=== PATIENT | male | born 1945 | race Caucasian/White ===

== ENCOUNTER → 2023-07-02 10:07 | Outpatient (REF) | payer MEDICARE, OTHER, SELFPAY ==
[2023-07-02 10:42] LABS: % Basophils 0.6 % (0-2); % Eosinophils 3.2 % (0-6); % Immature Granulocytes 0.2 % (0-0.5); % Lymphocytes 55.7 % (20.5-51.1); % Monocytes 7.4 % (1.7-9.3); % Neutrophils 32.9 % (42.2-75.2); Absolute Eosinophils 0.2 10^3/uL (0-0.7); Absolute Monocytes 0.4 10^3/uL (0.1-0.6); Absolute Neutrophils 1.8 10^3/uL (1.4-6.5); Hematocrit 24.6 % (39.0-52.0); Hemoglobin 7.3 g/dL (13.0-18.0); INR 1.25; Mean Corp Hgb Conc. 29.7 g/dL (33.0-37.0); Mean Corpuscular Hgb 18.9 pg (27.0-31.0); Mean Corpuscular Volume 63.7 fL (80.0-94.0); Mean Platelet Volume 10.3 fL (7.4-10.4); Nucleated Red Blood Cells % 0 % (-); PT 15.5 Sec (11.4-14.6); Platelet Count 220 10^3/uL (130-400); Red Blood Cell Count 3.86 10^6/uL (4.70-6.10); Red Cell Dist. Width 17.7 % (11.5-14.5); White Blood Cell Count 5.3 10^3/uL (4.8-10.8)
[2023-07-02 10:43] LABS: APTT 38.5 Sec (23.4-35.0)
[2023-07-02 10:54] LABS: ALT (SGPT) < 10 U/L (0-50); AST (SGOT) 19 U/L (17-59); Albumin 2.7 g/dl (3.5-5.0); Alkaline Phosphatase 86 U/L (38-126); Blood Urea Nitrogen 22 mg/dl (9-20); Calcium 8.7 mg/dl (8.4-10.2); Carbon Dioxide 27 mmol/L (22-30); Chloride 101 mmol/L (98-107); Glucose 105 mg/dl (70-99); Potassium 4.3 mmol/L (3.5-5.1); Sodium 135 mmol/L (135-145); Total Bilirubin 0.8 mg/dl (0.2-1.3); Total Protein 6.5 g/dl (6.3-8.2); eGFR > 60.00
[2023-07-02 11:27] LABS: AFP Male/Tumor Marker 2.02 ng/ml
== END ==
LOC: OLABLV 10:07
PROVIDERS: ATTENDING PHYSICIAN Internal Medicine
DX: K70.30 Alcoholic cirrhosis of liver without ascites (principal); D50.9 Iron deficiency anemia, unspecified
CPT/HCPCS: 36415; 80053; 82105; 85025; 85610; 85730

== ENCOUNTER 2023-07-23 06:14 | Day surgery (SDC) | payer MEDICARE, OTHER, SELFPAY ==
[2023-07-23 10:42] VITALS: BP 106/67
[2023-07-23 10:51] VITALS: BMI 19.2
[2023-07-23 10:52] VITALS: BMI 19.2
[2023-07-23 12:20] VITALS: BP 89/65
[2023-07-23 12:30] VITALS: BP 101/67
[2023-07-23 12:45] VITALS: BP 109/75
[2023-07-23 12:53] VITALS: BP 114/80
[2023-07-23 13:17] LABS: % Basophils 0.6 % (0-2); % Eosinophils 2.6 % (0-6); % Immature Granulocytes 0.2 % (0-0.5); % Lymphocytes 57.9 % (20.5-51.1); % Monocytes 8.8 % (1.7-9.3); % Neutrophils 29.9 % (42.2-75.2); Absolute Eosinophils 0.1 10^3/uL (0-0.7); Absolute Lymphocytes 2.7 10^3/uL (1.2-3.4); Absolute Monocytes 0.4 10^3/uL (0.1-0.6); Absolute Neutrophils 1.4 10^3/uL (1.4-6.5); Hematocrit 25.9 % (39.0-52.0); Hemoglobin 7.7 g/dL (13.0-18.0); Mean Corp Hgb Conc. 29.7 g/dL (33.0-37.0); Mean Corpuscular Hgb 18.6 pg (27.0-31.0); Mean Corpuscular Volume 62.4 fL (80.0-94.0); Mean Platelet Volume 9.6 fL (7.4-10.4); Nucleated Red Blood Cells % 0 % (-); Platelet Count 210 10^3/uL (130-400); Red Blood Cell Count 4.15 10^6/uL (4.70-6.10); Red Cell Dist. Width 19.7 % (11.5-14.5); Reticulocyte Count 1.1 % (0.4-2.8); White Blood Cell Count 4.7 10^3/uL (4.8-10.8)
[2023-07-23 13:47] LABS: HDL Cholesterol 29 mg/dl; Iron 40 ug/dl (49-181); LDL Cholesterol, Calculated 69 mg/dl; Total Cholesterol 110 mg/dl (50-199); Triglyceride 62 mg/dl (10-149); Very Low Density Lipoprotein 12 mg/dl (0-30)
[2023-07-23 13:50] LABS: Erythrocyte Sed Rate 68 mm/hour (0-20)
[2023-07-23 13:58] LABS: Percent Saturation 10 % (20-50); Total Iron Binding Capacity 392 ug/dl (261-462)
[2023-07-23 14:06] LABS: Free T4 1.04 ng/dl (0.78-2.19); Vitamin D, 25-OH*** 29.5 ng/mL (30-80)
[2023-07-23 14:20] LABS: PSA, Total - Screen 0.96 ng/ml (0.0-4.0)
[2023-07-23 14:23] LABS: TSH 1.77 uIU/ml (0.47-4.68)
[2023-07-23 14:24] LABS: Ferritin 14.2 ng/ml (17.9-464.0)
[2023-07-23 14:55] LABS: Folate 8.6 ng/ml (2.76-20); Vitamin B12 430 pg/ml (239-931)
[2023-07-27 00:27] LABS: Albumin 2.74 g/dL (3.75-5.01); Alpha 1 Globulin 0.38 g/dL (0.19-0.46); Alpha 2 Globulin 0.62 g/dL (0.48-1.05); Free Kappa Light Chains,Quant 137.14 mg/L (3.30-19.40); Free Lambda Light Chains,Quant 70.46 mg/L (5.71-26.30); IgA 282 mg/dL (68-408); IgG 2525 mg/dL (768-1632); IgM 73 mg/dL (35-263); Immunofixation Electrophoresis IFE Done; Kappa/Lambda Fr Light Ratio 1.95 (0.26-1.65)
== END 2023-07-23 13:30 | disposition home or self-care (01) ==
LOC: GI 06:14
PROVIDERS: ATTENDING PHYSICIAN Internal Medicine
DX: D50.9 Iron deficiency anemia, unspecified (principal); K44.9 Diaphragmatic hernia without obstruction or gangrene; K31.7 Polyp of stomach and duodenum; K22.70 Barrett's esophagus without dysplasia; K25.9 Gastric ulcer, unspecified as acute or chronic, without hemorrhage or perforation
CPT/HCPCS: 43235; 91112; 36415; 80061; 82306; 82607; 82728; 82746; 82784; 83521; 83540; 83550; 84155; 84165; 84439; 84443; 85025; 85045; 85652; 86334; G0103

== ENCOUNTER → 2023-07-26 14:15 | Outpatient (REF) | payer MEDICARE, OTHER, SELFPAY ==
[2023-07-26 11:58] LABS: % Basophils 0.8 % (0-2); % Eosinophils 2.5 % (0-6); % Immature Granulocytes 0.3 % (0-0.5); % Lymphocytes 59.6 % (20.5-51.1); % Monocytes 7.9 % (1.7-9.3); % Neutrophils 28.9 % (42.2-75.2); Absolute Eosinophils 0.1 10^3/uL (0-0.7); Absolute Lymphocytes 2.4 10^3/uL (1.2-3.4); Absolute Monocytes 0.3 10^3/uL (0.1-0.6); Absolute Neutrophils 1.1 10^3/uL (1.4-6.5); Hematocrit 29.1 % (39.0-52.0); Hemoglobin 8.6 g/dL (13.0-18.0); Mean Corp Hgb Conc. 29.6 g/dL (33.0-37.0); Mean Corpuscular Hgb 18.7 pg (27.0-31.0); Mean Corpuscular Volume 63.4 fL (80.0-94.0); Mean Platelet Volume 9.3 fL (7.4-10.4); Nucleated Red Blood Cells % 0 % (-); Platelet Count 204 10^3/uL (130-400); Red Blood Cell Count 4.59 10^6/uL (4.70-6.10); Red Cell Dist. Width 21.5 % (11.5-14.5); Reticulocyte Count 0.9 % (0.4-2.8); White Blood Cell Count 3.9 10^3/uL (4.8-10.8)
[2023-07-26 12:17] LABS: Iron 32 ug/dl (49-181)
[2023-07-26 12:18] LABS: Erythrocyte Sed Rate 63 mm/hour (0-20)
[2023-07-26 12:27] LABS: Percent Saturation 8 % (20-50); Total Iron Binding Capacity 394 ug/dl (261-462)
[2023-07-26 12:29] LABS: IgA 322 mg/dl (70-400); IgM 68 mg/dl (40-230)
[2023-07-26 12:34] LABS: Vitamin D, 25-OH*** 41.1 ng/mL (30-80)
[2023-07-26 12:48] LABS: TSH 1.82 uIU/ml (0.47-4.68)
[2023-07-26 12:52] LABS: Ferritin 17.1 ng/ml (17.9-464.0); IgG 2830 mg/dl (700-1600)
[2023-07-26 14:50] LABS: Vitamin B12 500 pg/ml (239-931)
== END ==
LOC: OIDL 14:15
PROVIDERS: ATTENDING PHYSICIAN Internal Medicine Hematology & Oncology
DX: D47.2 Monoclonal gammopathy (principal); D50.9 Iron deficiency anemia, unspecified; D51.9 Vitamin B12 deficiency anemia, unspecified; R53.82 Chronic fatigue, unspecified; E55.9 Vitamin D deficiency, unspecified
CPT/HCPCS: 82306; 82607; 82728; 82746; 82784; 83540; 83550; 84443; 85025; 85045; 85652

== ENCOUNTER → 2023-09-08 09:56 | Outpatient (REF) | payer MEDICARE, OTHER, SELFPAY ==
[2023-09-08 11:01] LABS: Hematocrit 33.6 % (39.0-52.0); Hemoglobin 10.4 g/dL (13.0-18.0); Mean Corpuscular Hgb 22.7 pg (27.0-31.0); Mean Corpuscular Volume 73.4 fL (80.0-94.0); Mean Platelet Volume 9.5 fL (7.4-10.4); Platelet Count 186 10^3/uL (130-400); Red Blood Cell Count 4.58 10^6/uL (4.70-6.10); Red Cell Dist. Width 26.4 % (11.5-14.5); White Blood Cell Count 5.9 10^3/uL (4.8-10.8)
[2023-09-08 11:29] LABS: Iron 50 ug/dl (49-181)
[2023-09-08 11:38] LABS: Percent Saturation 15 % (20-50); Total Iron Binding Capacity 319 ug/dl (261-462)
[2023-09-08 12:27] LABS: Ferritin 50.1 ng/ml (17.9-464.0)
[2023-09-08 13:46] LABS: Atypical Lymphocytes 14 %; Band Neutrophils 2 % (0-3); Lymphocytes 44 % (20-51); Monocytes 8 % (2-9); Platelets Checked Yes; Segmented Neutrophils 32 % (42-75)
[2023-09-08 13:47] LABS: Anisocytosis 1+; Normal RBC Morphology No; Target Cells Slight
[2023-09-08 13:48] LABS: Ovalocytes Slight; Poikilocytosis 1+
[2023-09-08 13:49] LABS: Total Cells Counted 100
== END ==
LOC: OLABLV 09:56
PROVIDERS: ATTENDING PHYSICIAN Internal Medicine Hematology & Oncology
DX: D47.2 Monoclonal gammopathy (principal); D50.9 Iron deficiency anemia, unspecified
CPT/HCPCS: 36415; 82728; 83540; 83550; 85025

== ENCOUNTER → 2023-09-19 20:00 | Outpatient (REF) | payer MEDICARE, OTHER, SELFPAY ==
[2023-09-20 14:29] LABS: Urine Albumin Negative (Neg - Trace); Urine Bilirubin Negative (Negative); Urine Character Clear (Clear); Urine Color Yellow; Urine Glucose Negative (Negative); Urine Ketone Negative (Negative); Urine Leukocyte Negative (Negative); Urine Nitrite Negative (Negative); Urine Occult Blood Negative (Negative); Urine Urobilinogen Negative (Neg - 1+)
== END ==
LOC: OLABLV 20:00
PROVIDERS: ATTENDING PHYSICIAN Nurse Practitioner Family
DX: N39.0 Urinary tract infection, site not specified (principal)
CPT/HCPCS: 81003

== ENCOUNTER → 2023-09-20 13:43 | Outpatient (REF) | payer MEDICARE, OTHER, SELFPAY | LOC: PAVMRI 13:43 | PROVIDERS: ATTENDING PHYSICIAN Internal Medicine; FAMILY PHYSICIAN Family Medicine | DX: K70.30 Alcoholic cirrhosis of liver without ascites (principal) | CPT/HCPCS: 74183; A9575 ==

== ENCOUNTER → 2023-09-30 14:16 | Outpatient (REF) | payer MEDICARE, OTHER, SELFPAY ==
[2023-09-30 11:59] LABS: Hematocrit 35.2 % (39.0-52.0); Mean Corp Hgb Conc. 31.3 g/dL (33.0-37.0); Mean Corpuscular Hgb 23.8 pg (27.0-31.0); Mean Platelet Volume 9.1 fL (7.4-10.4); Platelet Count 144 10^3/uL (130-400); Red Blood Cell Count 4.63 10^6/uL (4.70-6.10); Red Cell Dist. Width 20.8 % (11.5-14.5); White Blood Cell Count 4.7 10^3/uL (4.8-10.8)
[2023-09-30 12:24] LABS: Blood Urea Nitrogen 22 mg/dl (9-20); Calcium 8.9 mg/dl (8.4-10.2); Carbon Dioxide 34 mmol/L (22-30); Chloride 101 mmol/L (98-107); Glucose 63 mg/dl (70-99); Potassium 4.3 mmol/L (3.5-5.1); Sodium 138 mmol/L (135-145); eGFR > 60.00
[2023-09-30 13:15] LABS: Nucleated Red Blood Cells % 0 % (-)
[2023-09-30 15:25] LABS: % Basophils 0.6 % (0-2); % Eosinophils 1.9 % (0-6); % Immature Granulocytes 0.2 % (0-0.5); % Lymphocytes 61.2 % (20.5-51.1); % Monocytes 7.8 % (1.7-9.3); % Neutrophils 28.3 % (42.2-75.2); Absolute Neutrophils 1.3 10^3/uL (1.4-6.5)
[2023-09-30 15:26] LABS: Absolute Eosinophils 0.1 10^3/uL (0-0.7); Absolute Lymphocytes 2.9 10^3/uL (1.2-3.4); Absolute Monocytes 0.4 10^3/uL (0.1-0.6)
[2023-09-30 16:12] LABS: Absolute Neutrophils -Man Diff 1.5 10^3/uL (1.4-6.5); Band Neutrophils 0 % (0-3); Eosinophils 1 % (0-6); Lymphocytes 64 % (20-51); Monocytes 3 % (2-9); Normal RBC Morphology Yes; Pathologist Reviewed No; Platelets Checked Yes; Segmented Neutrophils 32 % (42-75); Total Cells Counted 100
== END ==
LOC: OIDL 14:16
PROVIDERS: ATTENDING PHYSICIAN Internal Medicine Hematology & Oncology
DX: D47.2 Monoclonal gammopathy (principal)
CPT/HCPCS: 80048; 82784; 83521; 84155; 84165; 85025; 86334

== ENCOUNTER → 2023-11-03 11:59 | Outpatient (REF) | payer MEDICARE, OTHER, SELFPAY ==
[2023-11-03 13:09] LABS: % Basophils 0.8 % (0-2); % Eosinophils 2.7 % (0-6); % Lymphocytes 55.3 % (20.5-51.1); % Monocytes 6.1 % (1.7-9.3); % Neutrophils 35.1 % (42.2-75.2); Absolute Eosinophils 0.1 10^3/uL (0-0.7); Absolute Lymphocytes 2.8 10^3/uL (1.2-3.4); Absolute Monocytes 0.3 10^3/uL (0.1-0.6); Absolute Neutrophils 1.8 10^3/uL (1.4-6.5); Hematocrit 34.1 % (39.0-52.0); Mean Corp Hgb Conc. 32.3 g/dL (33.0-37.0); Mean Corpuscular Hgb 25.6 pg (27.0-31.0); Mean Corpuscular Volume 79.5 fL (80.0-94.0); Mean Platelet Volume 9.6 fL (7.4-10.4); Nucleated Red Blood Cells % 0 % (-); Platelet Count 150 10^3/uL (130-400); Red Blood Cell Count 4.29 10^6/uL (4.70-6.10); Red Cell Dist. Width 16.8 % (11.5-14.5); White Blood Cell Count 5.1 10^3/uL (4.8-10.8)
== END ==
LOC: OLABLV 11:59
PROVIDERS: ATTENDING PHYSICIAN Internal Medicine Hematology & Oncology; FAMILY PHYSICIAN Nurse Practitioner Family
DX: D47.2 Monoclonal gammopathy (principal); C83.07 Small cell B-cell lymphoma, spleen; D05.90 Unspecified type of carcinoma in situ of unspecified breast
CPT/HCPCS: 36415; 85025

== ENCOUNTER → 2023-11-19 08:35 | Outpatient (REF) | payer MEDICARE, OTHER, SELFPAY ==
[2023-11-19 09:26] LABS: % Basophils 0.6 % (0-2); % Eosinophils 2.3 % (0-6); % Immature Granulocytes 0.2 % (0-0.5); % Lymphocytes 56.7 % (20.5-51.1); % Monocytes 7.6 % (1.7-9.3); % Neutrophils 32.6 % (42.2-75.2); Absolute Eosinophils 0.1 10^3/uL (0-0.7); Absolute Monocytes 0.4 10^3/uL (0.1-0.6); Absolute Neutrophils 1.7 10^3/uL (1.4-6.5); Hematocrit 36.7 % (39.0-52.0); Hemoglobin 11.4 g/dL (13.0-18.0); Mean Corp Hgb Conc. 31.1 g/dL (33.0-37.0); Mean Corpuscular Hgb 25.6 pg (27.0-31.0); Mean Corpuscular Volume 82.3 fL (80.0-94.0); Mean Platelet Volume 9.5 fL (7.4-10.4); Nucleated Red Blood Cells % 0 % (-); Platelet Count 146 10^3/uL (130-400); Red Blood Cell Count 4.46 10^6/uL (4.70-6.10); Red Cell Dist. Width 15.9 % (11.5-14.5); White Blood Cell Count 5.2 10^3/uL (4.8-10.8)
[2023-11-19 10:15] LABS: Iron 34 ug/dl (49-181)
[2023-11-19 10:25] LABS: Percent Saturation 12 % (20-50); Total Iron Binding Capacity 269 ug/dl (261-462)
== END ==
LOC: OLABLV 08:35
PROVIDERS: ATTENDING PHYSICIAN Internal Medicine Hematology & Oncology; FAMILY PHYSICIAN Nurse Practitioner Family
DX: R60.0 Localized edema (principal); K70.31 Alcoholic cirrhosis of liver with ascites; D47.2 Monoclonal gammopathy; D50.9 Iron deficiency anemia, unspecified
CPT/HCPCS: 36415; 82728; 83540; 83550; 85025

== ENCOUNTER → 2023-11-24 11:00 | Outpatient (REF) | payer MEDICARE, OTHER, SELFPAY ==
[2023-11-24 12:45] LABS: % Basophils 0.8 % (0-2); % Eosinophils 2.4 % (0-6); % Lymphocytes 55.7 % (20.5-51.1); % Monocytes 7.1 % (1.7-9.3); Absolute Eosinophils 0.1 10^3/uL (0-0.7); Absolute Lymphocytes 2.7 10^3/uL (1.2-3.4); Absolute Monocytes 0.4 10^3/uL (0.1-0.6); Absolute Neutrophils 1.7 10^3/uL (1.4-6.5); Hematocrit 37.4 % (39.0-52.0); Hemoglobin 11.7 g/dL (13.0-18.0); Mean Corp Hgb Conc. 31.3 g/dL (33.0-37.0); Mean Corpuscular Hgb 26.1 pg (27.0-31.0); Mean Corpuscular Volume 83.5 fL (80.0-94.0); Mean Platelet Volume 9.7 fL (7.4-10.4); Nucleated Red Blood Cells % 0 % (-); Platelet Count 156 10^3/uL (130-400); Red Blood Cell Count 4.48 10^6/uL (4.70-6.10); White Blood Cell Count 4.9 10^3/uL (4.8-10.8)
[2023-11-24 13:11] LABS: Iron 34 ug/dl (49-181)
== END ==
LOC: OLABLV 11:00
PROVIDERS: ATTENDING PHYSICIAN Internal Medicine Hematology & Oncology
DX: D47.2 Monoclonal gammopathy (principal); D50.9 Iron deficiency anemia, unspecified
CPT/HCPCS: 36415; 82728; 83540; 85025

== ENCOUNTER → 2023-12-08 12:50 | Outpatient (REF) | payer MEDICARE, OTHER, SELFPAY ==
[2023-12-08 13:32] LABS: % Basophils 0.6 % (0-2); % Lymphocytes 56.7 % (20.5-51.1); % Monocytes 6.2 % (1.7-9.3); % Neutrophils 33.5 % (42.2-75.2); Absolute Eosinophils 0.1 10^3/uL (0-0.7); Absolute Lymphocytes 2.6 10^3/uL (1.2-3.4); Absolute Monocytes 0.3 10^3/uL (0.1-0.6); Absolute Neutrophils 1.6 10^3/uL (1.4-6.5); Hemoglobin 11.5 g/dL (13.0-18.0); Mean Corp Hgb Conc. 32.9 g/dL (33.0-37.0); Mean Corpuscular Hgb 26.4 pg (27.0-31.0); Mean Corpuscular Volume 80.3 fL (80.0-94.0); Mean Platelet Volume 9.9 fL (7.4-10.4); Nucleated Red Blood Cells % 0 % (-); Platelet Count 151 10^3/uL (130-400); Red Blood Cell Count 4.36 10^6/uL (4.70-6.10); Red Cell Dist. Width 15.8 % (11.5-14.5); White Blood Cell Count 4.7 10^3/uL (4.8-10.8)
[2023-12-08 13:54] LABS: ALT (SGPT) < 10 U/L (0-50); AST (SGOT) 20 U/L (17-59); Albumin 3.2 g/dl (3.5-5.0); Alkaline Phosphatase 79 U/L (38-126); Blood Urea Nitrogen 19 mg/dl (9-20); Calcium 8.7 mg/dl (8.4-10.2); Carbon Dioxide 30 mmol/L (22-30); Chloride 100 mmol/L (98-107); Glucose 93 mg/dl (70-99); Iron 51 ug/dl (49-181); Potassium 4.2 mmol/L (3.5-5.1); Sodium 135 mmol/L (135-145); Total Bilirubin 0.8 mg/dl (0.2-1.3); Total Protein 6.5 g/dl (6.3-8.2); eGFR > 60.00
[2023-12-08 14:03] LABS: Percent Saturation 20 % (20-50); Total Iron Binding Capacity 254 ug/dl (261-462)
[2023-12-08 14:57] LABS: Folate 4.2 ng/ml (2.76-20); Vitamin B12 334 pg/ml (239-931)
== END ==
LOC: OLABLV 12:50
PROVIDERS: ATTENDING PHYSICIAN Internal Medicine Hematology & Oncology; FAMILY PHYSICIAN Nurse Practitioner Family
DX: D47.2 Monoclonal gammopathy (principal); D50.9 Iron deficiency anemia, unspecified; C83.07 Small cell B-cell lymphoma, spleen; R41.82 Altered mental status, unspecified
CPT/HCPCS: 80053; 82607; 82728; 82746; 83540; 83550; 85025

== ENCOUNTER → 2023-12-22 09:39 | Outpatient (REF) | payer MEDICARE, OTHER, SELFPAY ==
[2023-12-22 09:54] VITALS: BP 105/67; BP_SYST 89
[2023-12-22 10:10] VITALS: BP 104/68; BP_SYST 77
[2023-12-22] MEDS: TYLENOL 650 MG PO (10:45)
== END ==
LOC: RADI 09:39
PROVIDERS: ATTENDING PHYSICIAN Internal Medicine Critical Care Medicine
DX: J90 Pleural effusion, not elsewhere classified (principal)
CPT/HCPCS: 88305; 32555; 71045; 88112

== ENCOUNTER → 2023-12-31 14:28 | Outpatient (REF) | payer MEDICARE, OTHER, SELFPAY ==
[2023-12-31 15:39] LABS: INR 1.21; PT 15.1 Sec (11.4-14.6)
[2023-12-31 16:11] LABS: ALT (SGPT) < 10 U/L (0-50); AST (SGOT) 20 U/L (17-59); Albumin 3.5 g/dl (3.5-5.0); Alkaline Phosphatase 92 U/L (38-126); Blood Urea Nitrogen 18 mg/dl (9-20); Carbon Dioxide 31 mmol/L (22-30); Chloride 98 mmol/L (98-107); Glucose 100 mg/dl (70-99); Iron 65 ug/dl (49-181); Potassium 3.8 mmol/L (3.5-5.1); Sodium 137 mmol/L (135-145); Total Bilirubin 0.8 mg/dl (0.2-1.3); Total Protein 7.2 g/dl (6.3-8.2); eGFR > 60.00
[2023-12-31 16:20] LABS: Percent Saturation 23 % (20-50); Total Iron Binding Capacity 274 ug/dl (261-462)
[2023-12-31 16:46] LABS: Hematocrit 37.6 % (39.0-52.0); Hemoglobin 12.2 g/dL (13.0-18.0); Mean Corp Hgb Conc. 32.4 g/dL (33.0-37.0); Mean Corpuscular Hgb 26.7 pg (27.0-31.0); Mean Corpuscular Volume 82.3 fL (80.0-94.0); Mean Platelet Volume 9.8 fL (7.4-10.4); Platelet Count 189 10^3/uL (130-400); Red Blood Cell Count 4.57 10^6/uL (4.70-6.10); Red Cell Dist. Width 14.8 % (11.5-14.5); White Blood Cell Count 5.4 10^3/uL (4.8-10.8)
[2023-12-31 17:03] LABS: % Basophils 0.9 % (0-2); % Eosinophils 2.4 % (0-6); % Immature Granulocytes 0.2 % (0-0.5); % Lymphocytes 58.9 % (20.5-51.1); % Monocytes 5.4 % (1.7-9.3); % Neutrophils 32.2 % (42.2-75.2); Absolute Basophils 0.1 10^3/uL (0-0.2); Absolute Eosinophils 0.1 10^3/uL (0-0.7); Absolute Lymphocytes 3.2 10^3/uL (1.2-3.4); Absolute Monocytes 0.3 10^3/uL (0.1-0.6); Absolute Neutrophils 1.8 10^3/uL (1.4-6.5); Nucleated Red Blood Cells % 0 % (-)
== END ==
LOC: OLABLV 14:28
PROVIDERS: Nurse Practitioner Family; ATTENDING PHYSICIAN Nurse Practitioner; REFERRING PHYSICIAN Internal Medicine Hematology & Oncology
DX: K70.30 Alcoholic cirrhosis of liver without ascites (principal); D50.9 Iron deficiency anemia, unspecified
CPT/HCPCS: 36415; 80053; 82105; 82728; 83540; 83550; 85025; 85610; 85730

== ENCOUNTER → 2024-01-05 11:24 | Outpatient (REF) | payer MEDICARE, OTHER, SELFPAY ==
[2024-01-05 13:44] LABS: Hematocrit 36.4 % (39.0-52.0); Hemoglobin 11.6 g/dL (13.0-18.0); Mean Corp Hgb Conc. 31.9 g/dL (33.0-37.0); Mean Corpuscular Volume 84.8 fL (80.0-94.0); Mean Platelet Volume 9.9 fL (7.4-10.4); Platelet Count 165 10^3/uL (130-400); Red Blood Cell Count 4.29 10^6/uL (4.70-6.10); Red Cell Dist. Width 14.5 % (11.5-14.5); White Blood Cell Count 5.5 10^3/uL (4.8-10.8)
[2024-01-05 14:56] LABS: Absolute Neutrophils -Man Diff 1.2 10^3/uL (1.4-6.5); Band Neutrophils 0 % (0-3); Eosinophils 2 % (0-6); Lymphocytes 72 % (20-51); Monocytes 3 % (2-9); Normal RBC Morphology Yes; Platelets Checked Yes; Segmented Neutrophils 23 % (42-75); Total Cells Counted 100
== END ==
LOC: OLABLV 11:24
PROVIDERS: ATTENDING PHYSICIAN Internal Medicine Hematology & Oncology; FAMILY PHYSICIAN Nurse Practitioner Family
DX: D47.2 Monoclonal gammopathy (principal); C83.07 Small cell B-cell lymphoma, spleen; D50.9 Iron deficiency anemia, unspecified
CPT/HCPCS: 36415; 85025

== ENCOUNTER → 2024-01-14 10:56 | Outpatient (REF) | payer MEDICARE, OTHER, SELFPAY ==
[2024-01-14 11:39] LABS: Iron 30 ug/dl (49-181)
[2024-01-14 11:49] LABS: Hematocrit 34.4 % (39.0-52.0); Hemoglobin 11.3 g/dL (13.0-18.0); Mean Corp Hgb Conc. 32.8 g/dL (33.0-37.0); Mean Corpuscular Hgb 26.6 pg (27.0-31.0); Mean Corpuscular Volume 80.9 fL (80.0-94.0); Mean Platelet Volume 9.9 fL (7.4-10.4); Percent Saturation 11 % (20-50); Platelet Count 167 10^3/uL (130-400); Red Blood Cell Count 4.25 10^6/uL (4.70-6.10); Red Cell Dist. Width 14.1 % (11.5-14.5); Total Iron Binding Capacity 258 ug/dl (261-462); White Blood Cell Count 4.6 10^3/uL (4.8-10.8)
[2024-01-14 12:48] LABS: % Basophils 0.6 % (0-2); % Immature Granulocytes 0.2 % (0-0.5); % Lymphocytes 57.3 % (20.5-51.1); % Monocytes 6.7 % (1.7-9.3); % Neutrophils 32.2 % (42.2-75.2); Absolute Eosinophils 0.1 10^3/uL (0-0.7); Absolute Lymphocytes 2.7 10^3/uL (1.2-3.4); Absolute Monocytes 0.3 10^3/uL (0.1-0.6); Absolute Neutrophils 1.5 10^3/uL (1.4-6.5); Nucleated Red Blood Cells % 0 % (-)
== END ==
LOC: OLABLV 10:56
PROVIDERS: ATTENDING PHYSICIAN Nurse Practitioner Family
DX: R60.0 Localized edema (principal); K70.31 Alcoholic cirrhosis of liver with ascites
CPT/HCPCS: 36415; 82728; 83540; 83550; 85025

== ENCOUNTER → 2024-02-02 16:21 | Outpatient (REF) | payer MEDICARE, OTHER, SELFPAY ==
[2024-02-02 10:30] LABS: Blood Urea Nitrogen 19 mg/dl (9-20); Calcium 9.4 mg/dl (8.4-10.2); Chloride 98 mmol/L (98-107); Glucose 183 mg/dl (70-99); Potassium 4.6 mmol/L (3.5-5.1); Sodium 140 mmol/L (135-145); eGFR > 60.00
[2024-02-02 10:35] LABS: Carbon Dioxide 29 mmol/L (22-30); LDH 105 U/L (120-246)
[2024-02-02 12:06] LABS: % Basophils 0.8 % (0-2); % Eosinophils 2.1 % (0-6); % Immature Granulocytes 0.2 % (0-0.5); % Lymphocytes 54.4 % (20.5-51.1); % Monocytes 5.7 % (1.7-9.3); % Neutrophils 36.8 % (42.2-75.2); Absolute Eosinophils 0.1 10^3/uL (0-0.7); Absolute Lymphocytes 2.9 10^3/uL (1.2-3.4); Absolute Monocytes 0.3 10^3/uL (0.1-0.6); Absolute Neutrophils 1.9 10^3/uL (1.4-6.5); Hematocrit 39.4 % (39.0-52.0); Hemoglobin 12.8 g/dL (13.0-18.0); Mean Corp Hgb Conc. 32.5 g/dL (33.0-37.0); Mean Corpuscular Hgb 26.5 pg (27.0-31.0); Mean Corpuscular Volume 81.6 fL (80.0-94.0); Mean Platelet Volume 9.7 fL (7.4-10.4); Nucleated Red Blood Cells % 0 % (-); Platelet Count 175 10^3/uL (130-400); Red Blood Cell Count 4.83 10^6/uL (4.70-6.10); Red Cell Dist. Width 13.7 % (11.5-14.5); White Blood Cell Count 5.3 10^3/uL (4.8-10.8)
[2024-02-03 22:18] LABS: Beta-2-Microglobulin 5.6 mg/L (<=3.0)
[2024-02-05 02:49] LABS: Albumin 3.48 g/dL (3.75-5.01); Alpha 1 Globulin 0.42 g/dL (0.19-0.46); Alpha 2 Globulin 0.74 g/dL (0.48-1.05); Free Kappa Light Chains,Quant 124.08 mg/L (3.30-19.40); Free Lambda Light Chains,Quant 47.77 mg/L (5.71-26.30); IgA 279 mg/dL (68-408); IgG 2324 mg/dL (768-1632); IgM 62 mg/dL (35-263); Immunofixation Electrophoresis IFE Done; Total Protein-Electrophoresis 7.7 g/dL (6.3-8.2)
== END ==
LOC: OIDL 16:21
PROVIDERS: ATTENDING PHYSICIAN Internal Medicine Hematology & Oncology
DX: D47.2 Monoclonal gammopathy (principal)
CPT/HCPCS: 80048; 82232; 82784; 83521; 83615; 84155; 84165; 85025; 86334

== ENCOUNTER → 2024-03-01 11:22 | Outpatient (REF) | payer MEDICARE, OTHER, SELFPAY ==
[2024-03-01 12:13] LABS: Hematocrit 35.4 % (39.0-52.0); Hemoglobin 11.4 g/dL (13.0-18.0); Mean Corp Hgb Conc. 32.2 g/dL (33.0-37.0); Mean Corpuscular Hgb 27.2 pg (27.0-31.0); Mean Corpuscular Volume 84.5 fL (80.0-94.0); Mean Platelet Volume 9.7 fL (7.4-10.4); Platelet Count 162 10^3/uL (130-400); Red Blood Cell Count 4.19 10^6/uL (4.70-6.10); Red Cell Dist. Width 14.1 % (11.5-14.5); White Blood Cell Count 4.8 10^3/uL (4.8-10.8)
[2024-03-01 12:34] LABS: % Basophils 1.2 % (0-2); % Eosinophils 2.5 % (0-6); % Immature Granulocytes 0.2 % (0-0.5); % Lymphocytes 56.7 % (20.5-51.1); % Monocytes 6.4 % (1.7-9.3); Absolute Basophils 0.1 10^3/uL (0-0.2); Absolute Eosinophils 0.1 10^3/uL (0-0.7); Absolute Lymphocytes 2.7 10^3/uL (1.2-3.4); Absolute Monocytes 0.3 10^3/uL (0.1-0.6); Absolute Neutrophils 1.6 10^3/uL (1.4-6.5); Nucleated Red Blood Cells % 0 % (-)
== END ==
LOC: OLABLV 11:22
PROVIDERS: ATTENDING PHYSICIAN Internal Medicine; OTHER PHYSICIAN Internal Medicine Hematology & Oncology
DX: D47.2 Monoclonal gammopathy (principal); C83.07 Small cell B-cell lymphoma, spleen; D50.9 Iron deficiency anemia, unspecified
CPT/HCPCS: 36415; 85025

== ENCOUNTER → 2024-03-10 09:08 | Outpatient (REF) | payer MEDICARE, OTHER, SELFPAY ==
[2024-03-10 09:39] VITALS: BP 113/60; BP_SYST 76
[2024-03-10 09:44] LABS: INR 1.23; PT 15.3 Sec (11.4-14.6)
[2024-03-10 10:00] LABS: Hematocrit 38.9 % (39.0-52.0); Hemoglobin 12.4 g/dL (13.0-18.0); Mean Corp Hgb Conc. 31.9 g/dL (33.0-37.0); Mean Corpuscular Hgb 27.2 pg (27.0-31.0); Mean Corpuscular Volume 85.3 fL (80.0-94.0); Mean Platelet Volume 9.3 fL (7.4-10.4); Platelet Count 166 10^3/uL (130-400); Red Blood Cell Count 4.56 10^6/uL (4.70-6.10); Red Cell Dist. Width 14.2 % (11.5-14.5); White Blood Cell Count 4.6 10^3/uL (4.8-10.8)
[2024-03-10] MEDS: NSS (PRESERVATIVE FREE) 0.25 ML IV (10:26)
[2024-03-10] MEDS: ATIVAN 0.5 MG IV (10:27)
[2024-03-10 10:31] VITALS: BP 106/65
[2024-03-10 10:36] LABS: % Basophils 0.7 % (0-2); % Eosinophils 2.6 % (0-6); % Immature Granulocytes 0.2 % (0-0.5); % Lymphocytes 56.4 % (20.5-51.1); % Monocytes 5.3 % (1.7-9.3); % Neutrophils 34.8 % (42.2-75.2); Absolute Eosinophils 0.1 10^3/uL (0-0.7); Absolute Lymphocytes 2.6 10^3/uL (1.2-3.4); Absolute Monocytes 0.2 10^3/uL (0.1-0.6); Absolute Neutrophils 1.6 10^3/uL (1.4-6.5); Nucleated Red Blood Cells % 0 % (-)
[2024-03-10 11:23] VITALS: BP 124/76; BP_SYST 76
[2024-03-10 11:28] VITALS: BP 117/68
[2024-03-10 11:30] VITALS: BP 91/74
[2024-03-10 11:35] VITALS: BP 119/73
== END ==
LOC: RADI 09:08
PROVIDERS: ATTENDING PHYSICIAN Internal Medicine Hematology & Oncology; FAMILY PHYSICIAN Nurse Practitioner Family
DX: C83.07 Small cell B-cell lymphoma, spleen (principal); D47.2 Monoclonal gammopathy; D50.9 Iron deficiency anemia, unspecified
CPT/HCPCS: 88305; 88311; 88312; 36415; 38222; 77012; 85025; 85610; 88313; 99152

== ENCOUNTER 2024-03-13 14:44 | Emergency (ER) | payer MEDICARE, OTHER, SELFPAY ==
[2024-03-13] VITALS (7 sets, daily range): BP systolic 107–139; BP diastolic 61–81; BMI 19.1
--- NOTE | 2024-03-13 20:27 | ED.GENMED ---
History of Present Illness
General
Chief Complaint: Breathing Problem
Time Seen by Provider: 03/13/24 20:27
History of Present Illness
History of Present Illness:
TIME OF INITIAL ENCOUNTER: 8:30 PM
HPI: Patient comes in by ambulance from [facility] for further evaluation as he had outpatient x-ray that was abnormal. He has been having intermittent episodes of shortness of breath with exertion. He currently does not have any shortness
of breath at rest. He has had outpatient paracenteses in the past. He was surprised that they sent him here for further evaluation.
EXAM:
GENERAL: Well appearing in no distress
HEENT: Moist oral mucosa
CARDIOVASCULAR: No murmurs, normal heart rate, regular rhythm, No chest wall tenderness
PULMONARY: No respiratory distress, decreased breath sounds at the left base
ABDOMEN: Soft with no peritoneal signs, no tenderness
NEUROLOGIC: Good strength all extremities, no coordination deficits
PSYCHIATRIC: Appropriate mental status, normal insight and judgement
EXTREMITIES: Nontender, no edema, moves all extremities equally
SKIN: No rash, no lesions
NUMBER AND COMPLEXITY OF PROBLEMS ADDRESSED AT THE ENCOUNTER
� Chronic conditions affecting care: A-fib, high blood pressure, CKD, anemia, history of alcohol abuse, anxiety/depression
� Acute Exacerbation and/or Progression of Chronic Illness: This is an acute problem
� Differential Diagnosis includes: Pleural effusion, mass, pneumonia, heart failure
AMOUNT AND/OR COMPLEXITY OF DATA TO BE REVIEWED AND ANALYZED
� I performed an independent evaluation of and my interpretation is:
EKG:
CT: CT personally viewed and agree with radiologist interpretation there is a left-sided pleural effusion
X-rays: The chest x-ray that was performed earlier today as an outpatient shows moderate left-sided pleural effusion with loculation as well as airspace disease in the left lower lobe.
Laboratory Studies: I reviewed blood work from earlier today, white count 5.3, hemoglobin 11.5 which is near baseline, BNP 256, creatinine normal
Other:
� Review of other/old records: I reviewed old records including chest x-ray that was performed earlier today as outpatient
� Clinical information was obtained by an independent historian: None needed, patient is very good historian
� Prescriptions/Medications Considered but not given:
� Further testing considered but not performed:
RISK OF COMPLICATIONS AND/OR MORBIDITY OR MORTALITY OF PATIENT MANAGEMENT
� Social determinants of health affecting care: Comes in from [facility] (there for rehab)
� Discussion with other providers: Discussed case with on-call interventional radiology, Dr. Richardson
� Escalation of care including admission/observation vs risk of discharge considered: Given abnormality seen on plain film imaging, will obtain CT with contrast of the chest. However, the patient is 99% on room air and has
virtually no shortness of breath at rest.
ANY OTHER UPDATES:
11:45 PM: I reviewed the CT report that shows no definite mass but questions pneumonia. I doubt that he has pneumonia as the patient's oxygen level is 99%, he is afebrile, no cough, and white count is normal. Dr. Richardson recommended that his
nurses at the facility speak to a primary care doctor to get an order for an outpatient thoracentesis and will go through insurance and they can schedule him soon as possible. No clear indication for admission to the hospital.
Past History
Past History
ED Past Medical History: GERD, HTN, Psychiatric (alcohol abuse, anxiety), Other (Concussion, neuropathy, TIA,) and Other (Fatty liver, alcoholic liver disease)
ED Past Surgical History: Orthopedic (Right hip replacement 03/08/19. Previous left hip replacement)
Patient has exhibited threatening behavior?: No
Social History
Tobacco: Non-smoker
Alcohol: Daily
Personal:
Living: with family
Employment: Retired
Family History
Family History: Other (His father had a stroke)
Phy Exam
Physical Exam
Physical Exam:
See HPI
Scores
Heart Failure Risk
Heart Failure Risk Score: Not Applicable
Course
Orders/Labs/Results
Orders:
Orders
03/13/24 14:50
Electrocardiogram (*1) Urgent
Reason for Study: Shortness of Breath
EKG- Treatment ONCE
03/13/24 19:50
Cardiac Monitoring- Treatment ONCE
03/13/24 20:29
CT Chest With Iv Contrast Urgent
Comment:
Reason For Exam: abnormal CXR; SOB
03/13/24 20:29
03/13/24 20:29
Vital Signs
Initial and Last Documented VS:
Initial Vital Signs
Temp Pulse Resp BP Pulse Ox
97.6 F 82 16 108/61 97
03/13/24 14:48 03/13/24 14:48 03/13/24 14:48 03/13/24 14:48 03/13/24 14:48
Last Documented Vital Signs
Temp Pulse Resp BP Pulse Ox
98.4 F 89 29 128/79 98
03/13/24 18:27 03/13/24 21:30 03/13/24 21:30 03/13/24 21:00 03/13/24 21:30
*Critical Care Note
Total Time (30-74mins, 75-104mins- exclusive of procedures): Not Applicable
ED Attending Note
-
Portions of this chart may have been created with voice recognition software.� Occasional wrong word or��sound alike� substitutions may have occurred due to the inherent limitations of voice recognition software.
Discharge Plan
Departure
Patient Disposition: Home (Routine Discharge)
Date of Disposition: 03/13/24
Time of Disposition: 23:41
Patient with high blood pressure during this ER visit?: Yes
Discharge Problem:
Pleural effusion
Instructions: Pleural effusion, BLOOD PRESSURE
Prescriptions:
No Action
furosemide 40 mg Tablet
40 mg PO DAILY
famotidine 40 mg Tablet
40 mg PO DAILY
ferrous sulfate 325 mg (65 mg iron) Tablet
325 mg PO DAILY
calcium carbonate [Tums 500] 500 mg calcium (1,250 mg) Tablet,Chewable
500 mg PO BID PRN (Reason: indigestion)
acetaminophen [Tylenol Extra Strength] 500 mg Capsule
1,000 mg PO Q8H PRN (Reason: pain)
duloxetine 30 mg Capsule,Delayed Release(Dr/Ec)
30 mg PO BID
lactulose 10 gram/15 mL Solution
15 ml PO DAILY
Incruse Ellipta 62.5 mcg/actuation Blister With Device
1 inh INHALATION DAILY
melatonin 3 mg Capsule
3 mg PO HS PRN (Reason: sleep)
potassium chloride
10 meq PO DAILY
gabapentin 100 mg Capsule
100 mg PO TID
fluticasone propionate [Flonase] 50 mcg/actuation [place],Suspension
2 spray INTRANASAL BID
Referrals:
UNKNOWN - PT DOES,NOT KNOW [Family Provider] -
Activity Restrictions/Additional Instructions:
The CAT scan with IV contrast did not show any masses. It did show a moderate left and small right pleural effusion that could represent a chronic loculated effusion versus empyema. The 'mass' that was questioned on x-ray was felt to be either
atelectasis or pneumonia on the CT however your white blood cell count was normal from earlier today and you do not have a fever therefore I do not feel you have pneumonia. BNP level (test for heart failure) was not consistent with heart failure.
I spoke to Dr. Richardson (interventional radiology' who said that they can arrange outpatient thoracentesis but they would need a referral from the primary care doctor due to insurance requirement and once they have it they can arrange to schedule
you as soon as possible. Please speak to your nurses about this at [facility]. Return here if worse or any other concerns. Your oxygen levels here have been 99% on room air.
Interventions
Interventions:
*Risk Screen - Suicide Last Done: 03/13/24 14:48
*General Assessment Last Done: 03/13/24 19:55
*Neglect/Abuse Screening Last Done: 03/13/24 14:48
ED- Fall Risk Assessment Last Done: 03/13/24 20:48
*ED COVID-19 Vaccine History Last Done: 03/13/24 19:55
ED- Cardiac Assessment Last Done: 03/13/24 20:48
ED- Pulmonary Assessment Last Done: 03/13/24 20:48
Discharge Date and Time
Print Language: MACEDONIAN
--- NOTE | 2024-03-13 22:08 | EDRN ---
Updated patient on delay for CT, plugged his phone in and turned down lights for him, call nicolas in reach.
--- NOTE | 2024-03-14 00:47 | EDRN ---
Patient was incontinent to urine, patient ambulated into the restroom with use of walker, went to the bathroom and the we changed his brief and linen, provided patient with a urinal and reminded him to call if he needs to use the restroom or
anything else, he is aware transport wont be here until 0500 to take him back to facility.
[2024-03-14 01:00] VITALS: BP 119/89
[2024-03-14 02:00] VITALS: BP 118/78
[2024-03-14 03:00] VITALS: BP 127/99
== END 2024-03-14 04:22 | disposition home or self-care (01) ==
LOC: EMR 14:44
PROVIDERS: EMERGENCY PHYSICIAN Emergency Medicine
DX: J90 Pleural effusion, not elsewhere classified (principal); I10 Essential (primary) hypertension; I48.91 Unspecified atrial fibrillation; N18.9 Chronic kidney disease, unspecified; D64.9 Anemia, unspecified; F41.9 Anxiety disorder, unspecified; F32.A Depression, unspecified; F10.10 Alcohol abuse, uncomplicated
CPT/HCPCS: 99285; 36415; 71046; 71260; 80048; 83880; 85025; 93005; Q9967

== ENCOUNTER → 2024-03-22 07:46 | Outpatient (REF) | payer MEDICARE, OTHER, SELFPAY ==
[2024-03-22 08:00] VITALS: BP 102/73; BP_SYST 77
[2024-03-22 08:21] VITALS: BP 104/71; BP_SYST 66
[2024-03-22 08:34] VITALS: BP 105/68
== END ==
LOC: RADI 07:46
PROVIDERS: ATTENDING PHYSICIAN Family Medicine
DX: J90 Pleural effusion, not elsewhere classified (principal)
CPT/HCPCS: 32555; 71045

== ENCOUNTER → 2024-04-05 15:37 | Outpatient (REF) | payer MEDICARE, OTHER, SELFPAY | LOC: RAD 15:37 | PROVIDERS: ATTENDING PHYSICIAN Physician Assistant; FAMILY PHYSICIAN Family Medicine | DX: K70.30 Alcoholic cirrhosis of liver without ascites (principal) | CPT/HCPCS: 32555; 76700 ==

== ENCOUNTER → 2024-04-28 10:33 | Outpatient (REF) | payer MEDICARE, OTHER, SELFPAY ==
[2024-04-28 12:38] LABS: Hematocrit 35.4 % (39.0-52.0); Mean Corp Hgb Conc. 31.1 g/dL (33.0-37.0); Mean Corpuscular Hgb 26.6 pg (27.0-31.0); Mean Corpuscular Volume 85.5 fL (80.0-94.0); Mean Platelet Volume 9.8 fL (7.4-10.4); Platelet Count 142 10^3/uL (130-400); Red Blood Cell Count 4.14 10^6/uL (4.70-6.10); Red Cell Dist. Width 14.2 % (11.5-14.5); White Blood Cell Count 4.5 10^3/uL (4.8-10.8)
[2024-04-28 12:46] LABS: ALT (SGPT) 10 U/L (0-50); AST (SGOT) 19 U/L (17-59); Albumin 3.1 g/dl (3.5-5.0); Alkaline Phosphatase 82 U/L (38-126); Blood Urea Nitrogen 17 mg/dl (9-20); Calcium 8.4 mg/dl (8.4-10.2); Carbon Dioxide 34 mmol/L (22-30); Chloride 98 mmol/L (98-107); Glucose 107 mg/dl (70-99); Potassium 3.8 mmol/L (3.5-5.1); Sodium 138 mmol/L (135-145); Total Bilirubin 0.6 mg/dl (0.2-1.3); Total Protein 6.5 g/dl (6.3-8.2); Uric Acid 6.7 mg/dl (3.5-8.5); eGFR > 60.00
[2024-04-28 13:13] LABS: Hepatitis B Surface Antigen Negative (Negative)
[2024-04-28 13:19] LABS: Hepatitis B Core Ab, IgM Negative (Negative)
[2024-04-28 13:31] LABS: Hepatitis B Surface Antibody Negative; Hepatitis C Antibody Negative (Negative)
[2024-04-28 14:12] LABS: Atypical Lymphocytes 8 %; Band Neutrophils 0 % (0-3); Eosinophils 6 % (0-6); Lymphocytes 43 % (20-51); Monocytes 17 % (2-9); Myelocytes 3 % (-); Segmented Neutrophils 23 % (42-75)
[2024-04-28 14:13] LABS: Normal RBC Morphology Yes; Platelets Checked Yes; Smudge Cells 1+; Total Cells Counted 100
== END ==
LOC: OLABLV 10:33
PROVIDERS: ATTENDING PHYSICIAN Internal Medicine Hematology & Oncology
DX: D47.2 Monoclonal gammopathy (principal); D50.9 Iron deficiency anemia, unspecified; C83.07 Small cell B-cell lymphoma, spleen
CPT/HCPCS: 36415; 80053; 84550; 85025; 86705; 86706; 86803; 87340

== ENCOUNTER → 2024-05-26 16:34 | Outpatient (REF) | payer MEDICARE, OTHER, SELFPAY ==
[2024-05-26 08:41] LABS: % Basophils 0.5 % (0-2); % Eosinophils 3.6 % (0-6); % Lymphocytes 52.2 % (20.5-51.1); % Monocytes 5.9 % (1.7-9.3); % Neutrophils 37.8 % (42.2-75.2); Absolute Eosinophils 0.2 10^3/uL (0-0.7); Absolute Lymphocytes 3.2 10^3/uL (1.2-3.4); Absolute Monocytes 0.4 10^3/uL (0.1-0.6); Absolute Neutrophils 2.3 10^3/uL (1.4-6.5); Hemoglobin 11.8 g/dL (13.0-18.0); Mean Corp Hgb Conc. 30.3 g/dL (33.0-37.0); Mean Corpuscular Hgb 25.9 pg (27.0-31.0); Mean Corpuscular Volume 85.5 fL (80.0-94.0); Mean Platelet Volume 9.5 fL (7.4-10.4); Platelet Count 149 10^3/uL (130-400); Red Blood Cell Count 4.56 10^6/uL (4.70-6.10); Red Cell Dist. Width 14.7 % (11.5-14.5); White Blood Cell Count 6.1 10^3/uL (4.8-10.8)
== END ==
LOC: OIDL 16:34
PROVIDERS: ATTENDING PHYSICIAN Internal Medicine Hematology & Oncology
DX: D47.2 Monoclonal gammopathy (principal); D50.9 Iron deficiency anemia, unspecified; C83.07 Small cell B-cell lymphoma, spleen
CPT/HCPCS: 85025

== ENCOUNTER → 2024-06-02 14:35 | Outpatient (REF) | payer MEDICARE, OTHER, SELFPAY ==
[2024-06-02 08:59] LABS: % Basophils 0.4 % (0-2); % Eosinophils 3.5 % (0-6); % Immature Granulocytes 0.2 % (0-0.5); % Lymphocytes 33.3 % (20.5-51.1); % Monocytes 7.4 % (1.7-9.3); % Neutrophils 55.2 % (42.2-75.2); Absolute Eosinophils 0.2 10^3/uL (0-0.7); Absolute Lymphocytes 1.9 10^3/uL (1.2-3.4); Absolute Monocytes 0.4 10^3/uL (0.1-0.6); Absolute Neutrophils 3.1 10^3/uL (1.4-6.5); Hematocrit 40.5 % (39.0-52.0); Hemoglobin 12.6 g/dL (13.0-18.0); Mean Corp Hgb Conc. 31.1 g/dL (33.0-37.0); Mean Corpuscular Hgb 25.9 pg (27.0-31.0); Mean Corpuscular Volume 83.2 fL (80.0-94.0); Mean Platelet Volume 10.3 fL (7.4-10.4); Platelet Count 132 10^3/uL (130-400); Red Blood Cell Count 4.87 10^6/uL (4.70-6.10); Red Cell Dist. Width 14.7 % (11.5-14.5); White Blood Cell Count 5.7 10^3/uL (4.8-10.8)
[2024-06-02 09:42] LABS: ALT (SGPT) 10 U/L (0-50); AST (SGOT) 17 U/L (17-59); Albumin 3.1 g/dl (3.5-5.0); Alkaline Phosphatase 90 U/L (38-126); Blood Urea Nitrogen 16 mg/dl (9-20); Calcium 8.3 mg/dl (8.4-10.2); Carbon Dioxide 31 mmol/L (22-30); Chloride 99 mmol/L (98-107); Glucose 118 mg/dl (70-99); Potassium 3.9 mmol/L (3.5-5.1); Sodium 137 mmol/L (135-145); Total Bilirubin 0.7 mg/dl (0.2-1.3); Total Protein 6.4 g/dl (6.3-8.2); eGFR > 60.00
== END ==
LOC: OIDL 14:35
PROVIDERS: ATTENDING PHYSICIAN Nurse Practitioner Adult Health
DX: D47.2 Monoclonal gammopathy (principal)
CPT/HCPCS: 80053; 85025

== ENCOUNTER → 2024-07-05 09:11 | Outpatient (REF) | payer MEDICARE, OTHER, SELFPAY ==
[2024-07-05 09:40] LABS: % Basophils 0.6 % (0-2); % Immature Granulocytes 0.2 % (0-0.5); % Lymphocytes 29.5 % (20.5-51.1); % Monocytes 11.4 % (1.7-9.3); % Neutrophils 55.3 % (42.2-75.2); Absolute Eosinophils 0.2 10^3/uL (0-0.7); Absolute Lymphocytes 1.5 10^3/uL (1.2-3.4); Absolute Monocytes 0.6 10^3/uL (0.1-0.6); Absolute Neutrophils 2.8 10^3/uL (1.4-6.5); Hematocrit 37.2 % (39.0-52.0); Hemoglobin 11.5 g/dL (13.0-18.0); Mean Corp Hgb Conc. 30.9 g/dL (33.0-37.0); Mean Corpuscular Volume 84.2 fL (80.0-94.0); Mean Platelet Volume 10.3 fL (7.4-10.4); Nucleated Red Blood Cells % 0 % (-); Platelet Count 165 10^3/uL (130-400); Red Blood Cell Count 4.42 10^6/uL (4.70-6.10)
[2024-07-05 09:43] LABS: APTT 40.7 Sec (23.4-35.0); INR 1.23
[2024-07-05 10:20] LABS: ALT (SGPT) < 10 U/L (0-50); AST (SGOT) 18 U/L (17-59); Albumin 3.2 g/dl (3.5-5.0); Alkaline Phosphatase 104 U/L (38-126); Blood Urea Nitrogen 16 mg/dl (9-20); Calcium 8.4 mg/dl (8.4-10.2); Carbon Dioxide 31 mmol/L (22-30); Chloride 98 mmol/L (98-107); Glucose 105 mg/dl (70-99); Potassium 4.3 mmol/L (3.5-5.1); Sodium 132 mmol/L (135-145); Total Bilirubin 1.1 mg/dl (0.2-1.3); Total Protein 6.3 g/dl (6.3-8.2); eGFR > 60.00
[2024-07-06 11:25] LABS: AFP Male/Tumor Marker 3 ng/mL (0-9)
== END ==
LOC: OLABLV 09:11
PROVIDERS: ATTENDING PHYSICIAN Nurse Practitioner Family; REFERRING PHYSICIAN Physician Assistant
DX: K70.30 Alcoholic cirrhosis of liver without ascites (principal)
CPT/HCPCS: 36415; 80053; 82105; 85025; 85610; 85730

== ENCOUNTER → 2024-07-13 16:08 | Outpatient (REF) | payer MEDICARE, OTHER, SELFPAY ==
[2024-07-13 17:18] LABS: % Basophils 0.6 % (0-2); % Eosinophils 4.1 % (0-6); % Immature Granulocytes 0.2 % (0-0.5); % Lymphocytes 33.6 % (20.5-51.1); % Monocytes 10.8 % (1.7-9.3); % Neutrophils 50.7 % (42.2-75.2); Absolute Eosinophils 0.2 10^3/uL (0-0.7); Absolute Lymphocytes 1.8 10^3/uL (1.2-3.4); Absolute Monocytes 0.6 10^3/uL (0.1-0.6); Absolute Neutrophils 2.7 10^3/uL (1.4-6.5); Hematocrit 38.5 % (39.0-52.0); Hemoglobin 12.1 g/dL (13.0-18.0); Mean Corp Hgb Conc. 31.4 g/dL (33.0-37.0); Mean Corpuscular Hgb 25.7 pg (27.0-31.0); Mean Corpuscular Volume 81.9 fL (80.0-94.0); Mean Platelet Volume 9.8 fL (7.4-10.4); Nucleated Red Blood Cells % 0 % (-); Platelet Count 187 10^3/uL (130-400); Red Cell Dist. Width 14.3 % (11.5-14.5); White Blood Cell Count 5.4 10^3/uL (4.8-10.8)
[2024-07-13 17:48] LABS: ALT (SGPT) < 10 U/L (0-50); AST (SGOT) 19 U/L (17-59); Albumin 3.3 g/dl (3.5-5.0); Alkaline Phosphatase 96 U/L (38-126); Blood Urea Nitrogen 14 mg/dl (9-20); Calcium 8.6 mg/dl (8.4-10.2); Carbon Dioxide 33 mmol/L (22-30); Chloride 99 mmol/L (98-107); Glucose 83 mg/dl (70-99); LDH 108 U/L (120-246); Potassium 4.5 mmol/L (3.5-5.1); Sodium 136 mmol/L (135-145); Total Bilirubin 0.7 mg/dl (0.2-1.3); Total Protein 6.7 g/dl (6.3-8.2); eGFR > 60.00
== END ==
LOC: REG 16:08
PROVIDERS: ATTENDING PHYSICIAN Internal Medicine Hematology & Oncology; FAMILY PHYSICIAN Family Medicine
DX: D47.2 Monoclonal gammopathy (principal); D50.9 Iron deficiency anemia, unspecified; C83.07 Small cell B-cell lymphoma, spleen; T88.7XXA Unspecified adverse effect of drug or medicament, initial encounter
CPT/HCPCS: 36415; 80053; 83615; 85025

== ENCOUNTER → 2024-07-25 10:34 | Outpatient (REF) | payer MEDICARE, OTHER, SELFPAY | LOC: RAD 10:34 | PROVIDERS: ATTENDING PHYSICIAN Internal Medicine Hematology & Oncology; FAMILY PHYSICIAN Family Medicine | DX: D47.2 Monoclonal gammopathy (principal); D50.9 Iron deficiency anemia, unspecified; C83.07 Small cell B-cell lymphoma, spleen; T88.7XXA Unspecified adverse effect of drug or medicament, initial encounter | CPT/HCPCS: 71260; 74160; Q9967 ==

== ENCOUNTER 2024-07-28 05:46 | Outpatient (RCR) | payer SELFPAY | END 2024-07-28 23:59 | disposition home or self-care (01) | LOC: ROT 05:46 | PROVIDERS: ATTENDING PHYSICIAN Family Medicine | DX: Z02.4 Encounter for examination for driving license (principal) ==

== ENCOUNTER → 2024-08-14 10:42 | Outpatient (REF) | payer MEDICARE, OTHER, SELFPAY | LOC: RAD 10:42 | PROVIDERS: ATTENDING PHYSICIAN Internal Medicine Hematology & Oncology; FAMILY PHYSICIAN Family Medicine | DX: D47.2 Monoclonal gammopathy (principal); D50.9 Iron deficiency anemia, unspecified; C83.07 Small cell B-cell lymphoma, spleen; T88.7XXA Unspecified adverse effect of drug or medicament, initial encounter; K22.4 Dyskinesia of esophagus | CPT/HCPCS: 74221 ==

== ENCOUNTER → 2024-10-25 10:29 | Outpatient (REF) | payer MEDICARE, OTHER, SELFPAY ==
[2024-10-25 10:32] LABS: % Basophils 0.5 % (0-2); % Eosinophils 2.8 % (0-6); % Lymphocytes 23.3 % (20.5-51.1); % Monocytes 11.5 % (1.7-9.3); % Neutrophils 61.9 % (42.2-75.2); Absolute Eosinophils 0.1 10^3/uL (0-0.7); Absolute Lymphocytes 0.9 10^3/uL (1.2-3.4); Absolute Monocytes 0.5 10^3/uL (0.1-0.6); Absolute Neutrophils 2.5 10^3/uL (1.4-6.5); Hematocrit 43.5 % (39.0-52.0); Hemoglobin 13.7 g/dL (13.0-18.0); Mean Corp Hgb Conc. 31.5 g/dL (33.0-37.0); Mean Corpuscular Hgb 26.6 pg (27.0-31.0); Mean Corpuscular Volume 84.5 fL (80.0-94.0); Mean Platelet Volume 9.3 fL (7.4-10.4); Platelet Count 160 10^3/uL (130-400); Red Blood Cell Count 5.15 10^6/uL (4.70-6.10); Red Cell Dist. Width 19.3 % (11.5-14.5)
[2024-10-25 11:22] LABS: ALT (SGPT) < 10 U/L (0-50); AST (SGOT) 19 U/L (17-59); Alkaline Phosphatase 85 U/L (38-126); Blood Urea Nitrogen 18 mg/dl (9-20); Calcium 9.5 mg/dl (8.4-10.2); Carbon Dioxide 37 mmol/L (22-30); Chloride 100 mmol/L (98-107); Glucose 128 mg/dl (70-99); LDH 130 U/L (120-246); Potassium 4.2 mmol/L (3.5-5.1); Sodium 141 mmol/L (135-145); Total Protein 8.4 g/dl (6.3-8.2); eGFR > 60.00
[2024-10-28 01:21] LABS: Beta-2-Microglobulin 5.8 mg/L (<=3.0)
== END ==
LOC: OIDL 10:29
PROVIDERS: ATTENDING PHYSICIAN Internal Medicine Hematology & Oncology
DX: D47.2 Monoclonal gammopathy (principal); D50.9 Iron deficiency anemia, unspecified; C83.07 Small cell B-cell lymphoma, spleen; T88.7XXA Unspecified adverse effect of drug or medicament, initial encounter; K22.4 Dyskinesia of esophagus
CPT/HCPCS: 80053; 82232; 82784; 83521; 83615; 84155; 84165; 85025; 86334

== ENCOUNTER 2024-12-25 07:45 | Inpatient (IN) | payer MEDICARE, OTHER, SELFPAY ==
[2024-12-24 19:55] VITALS: BP 133/95
[2024-12-24 19:58] VITALS: BP 133/95
[2024-12-24 20:19] LABS: Hematocrit 38.4 % (39.0-52.0); Hemoglobin 12.5 g/dL (13.0-18.0); Mean Corp Hgb Conc. 32.6 g/dL (33.0-37.0); Mean Corpuscular Volume 86.1 fL (80.0-94.0); Nucleated Red Blood Cells % 0 % (-); Platelet Count 148 10^3/uL (130-400); Red Cell Dist. Width 14.8 % (11.5-14.5)
[2024-12-24 20:24] LABS: APTT 33.3 Sec (23.4-35.0); INR 1.13; PT 15.0 Sec (11.4-14.6)
[2024-12-24] MEDS: MORPHINE SULFATE 4 MG IV ×2 (20:43→22:02)
[2024-12-24 20:44] LABS: ALT (SGPT) 13 U/L (0-50); AST (SGOT) 29 U/L (17-59); Albumin 3.7 g/dl (3.5-5.0); Alkaline Phosphatase 80 U/L (38-126); Blood Urea Nitrogen 18 mg/dl (9-20); Calcium 8.6 mg/dl (8.4-10.2); Carbon Dioxide 33 mmol/L (22-30); Chloride 96 mmol/L (98-107); Estimated Creatinine Clearance 81 ml/min; Glucose 110 mg/dl (70-99); Potassium 3.6 mmol/L (3.5-5.1); Sodium 136 mmol/L (135-145); Total Protein 7.9 g/dl (6.3-8.2); eGFR > 60.00
[2024-12-24 21:00] VITALS: BP 115/76
[2024-12-24 22:00] VITALS: BP 101/64
--- NOTE | 2024-12-24 23:13 | ED.GENMED ---
History of Present Illness
<Karly Albrecht MD - Last Filed: 12/25/24 02:08>
General
Chief Complaint: Musculo-Skeletal Complaint
Source: patient
Time Seen by Provider: 12/24/24 20:17
History of Present Illness
History of Present Illness:
79-year-old male presents emergency department after suffering a mechanical fall. He did not hit his head. He denies injury with the exception of right pain, no radiation. He denies associated neck pain, headache, loss of consciousness, chest
pain, palpitations, dyspnea, abdominal pain, nausea, vomiting, distal extremity pain, or other complaints. Patient reports prior history of hip repair.
Past History
<Karly Albrecht MD - Last Filed: 12/25/24 02:08>
Past History
ED Past Medical History: GERD, HTN, Psychiatric (alcohol abuse, anxiety), Other (Concussion, neuropathy, TIA,) and Other (Fatty liver, alcoholic liver disease)
ED Past Surgical History: Orthopedic (Right hip replacement 03/08/19. Previous left hip replacement)
Patient has exhibited threatening behavior?: No
Social History
Tobacco: Non-smoker
Alcohol: Daily
Drug: None
Personal:
Living: alf
Employment: Retired
Family History
Family History: Other (His father had a stroke)
Phy Exam
<Karly Albrecht MD - Last Filed: 12/25/24 02:08>
Physical Exam
Physical Exam:
GENERAL: Alert , in no apparent distress
EYE: pupils equal and reactive, no photophobia
NECK: Supple, no significant adenopathy, no midline tenderness.
ENT: o/p clr, mmm.
CARDIAC: Regular rate and rhythm .
LUNGS: Clear breath sounds bilaterally, no acute respiratory distress, no wheezes/rales/rhonchi
ABDOMEN: Soft, without focal tenderness, no r/g, no cvat
NEUROLOGICAL: Alert and oriented, no focal neuro deficits
SKIN: Warm and dry, skin intact.
MUSCULOSKELETAL: No edema, well perfused. There is a superficial skin abrasion noted at the lateral aspect of the right lower extremity near fibular head without associated deformity or tenderness to palpation. Patient has a normal extremity exam
with the exception of decreased range of motion at hip with tenderness to palpation at the greater troches area. I do not appreciate actual deformity. Pulses are normal
PSYCH: Normal and appropriate interaction.
Course
<Karly Albrecht MD - Last Filed: 12/25/24 02:08>
Orders/Labs/Results
Orders:
Orders
12/24/24 20:04
CR Hip - RT w/wo Pel 2-3 Vw* Urgent
Comment:
Reason For Exam: fall/pain
Include a pelvis x-ray?: Yes
12/24/24 20:06
CBC/With Diff [Complete Blood Count/With Diff] Urgent
CMP [Comprehensive Metabolic Panel] Urgent
PT/INR [Prothrombin Time] Urgent
PTT Urgent
12/24/24 20:28
Morphine Sulfate 4 mg IV NOW STA
12/24/24 22:00
Morphine Sulfate 4 mg .ROUTE .STK-MED ONE
12/24/24 22:02
Morphine Sulfate 4 mg IV NOW STA
12/25/24 01:18
Morphine Sulfate 4 mg .ROUTE .STK-MED ONE
12/25/24 01:19
Morphine Sulfate 4 mg IV NOW STA
12/25/24 02:07
Case Management Consult ONCE
Case Management Consult: Discharge Planning
12/25/24 03:31
Morphine Sulfate 4 mg IV NOW STA
Abnormal Lab Results
12/24/24
20:06
RBC 4.46 L 10^6/uL
(4.70-6.10)
Hgb 12.5 L g/dL
(13.0-18.0)
Hct 38.4 L %
(39.0-52.0)
MCHC 32.6 L g/dL
(33.0-37.0)
RDW 14.8 H %
(11.5-14.5)
Monocytes % 10.0 H %
(1.7-9.3)
PT 15.0 H Sec
(11.4-14.6)
Chloride 96 L mmol/L
(98-107)
Carbon Dioxide 33 H mmol/L
(22-30)
Glucose 110 H mg/dl
(70-99)
12/24/24 20:06
12/24/24 20:06
Vital Signs
Initial and Last Documented VS:
Initial Vital Signs
Temp Pulse Resp BP Pulse Ox
97.6 F 90 20 133/95 94
12/24/24 19:55 12/24/24 19:55 12/24/24 19:55 12/24/24 19:55 12/24/24 19:55
Last Documented Vital Signs
Temp Pulse Resp BP Pulse Ox
97.6 F 93 15 93/61 94
12/24/24 19:55 12/25/24 01:21 12/25/24 01:21 12/25/24 01:21 12/25/24 00:00
<Maral Garcia, DO - Last Filed: 12/25/24 03:42>
Orders/Labs/Results
Orders:
Orders
12/24/24 20:04
CR Hip - RT w/wo Pel 2-3 Vw* Urgent
Comment:
Reason For Exam: fall/pain
Include a pelvis x-ray?: Yes
12/24/24 20:06
CBC/With Diff [Complete Blood Count/With Diff] Urgent
CMP [Comprehensive Metabolic Panel] Urgent
PT/INR [Prothrombin Time] Urgent
PTT Urgent
12/24/24 20:28
Morphine Sulfate 4 mg IV NOW STA
12/24/24 22:00
Morphine Sulfate 4 mg .ROUTE .STK-MED ONE
12/24/24 22:02
Morphine Sulfate 4 mg IV NOW STA
12/25/24 01:18
Morphine Sulfate 4 mg .ROUTE .STK-MED ONE
12/25/24 01:19
Morphine Sulfate 4 mg IV NOW STA
12/25/24 02:07
Case Management Consult ONCE
Case Management Consult: Discharge Planning
12/25/24 03:31
Morphine Sulfate 4 mg IV NOW STA
Abnormal Lab Results
12/24/24
20:06
RBC 4.46 L 10^6/uL
(4.70-6.10)
Hgb 12.5 L g/dL
(13.0-18.0)
Hct 38.4 L %
(39.0-52.0)
MCHC 32.6 L g/dL
(33.0-37.0)
RDW 14.8 H %
(11.5-14.5)
Monocytes % 10.0 H %
(1.7-9.3)
PT 15.0 H Sec
(11.4-14.6)
Chloride 96 L mmol/L
(98-107)
Carbon Dioxide 33 H mmol/L
(22-30)
Glucose 110 H mg/dl
(70-99)
12/24/24 20:06
12/24/24 20:06
Vital Signs
Initial and Last Documented VS:
Initial Vital Signs
Temp Pulse Resp BP Pulse Ox
97.6 F 90 20 133/95 94
12/24/24 19:55 12/24/24 19:55 12/24/24 19:55 12/24/24 19:55 12/24/24 19:55
Last Documented Vital Signs
Temp Pulse Resp BP Pulse Ox
97.6 F 93 15 93/61 94
12/24/24 19:55 12/25/24 01:21 12/25/24 01:21 12/25/24 01:21 12/25/24 00:00
<Karly Albrecht MD - Last Filed: 12/25/24 02:08>
*Pulse Oximetry
SaO2: 92
Oxygen Mode of Delivery: Room air
<Maral Garcia DO - Last Filed: 12/25/24 03:42>
*Pulse Oximetry
Patient hypoxic: yes
*Critical Care Note
Total Time (30-74mins, 75-104mins- exclusive of procedures): Not Applicable
<Karly Albrecht MD - Last Filed: 12/25/24 02:08>
Update Note
Update Note:
Patient presents to the Emergency Department with fall right hip pain____
Number and Complexity of Problems Addressed at the Encounter
� Chronic conditions affecting care:
� Acute Exacerbation and/or Progression of Chronic Illness:
� Differential Diagnosis includes: But not limited to hip contusion, pelvic fracture, hip fracture, etc. etc.
Amount and/or Complexity of Data to be Reviewed and Analyzed
� I performed an independent evaluation of and my interpretation is:
EKG:
CT:
Xrays:R hip fx noted with hardware in place
Laboratory Studies: Mild anemia, otherwise generally unremarkable
Other:
� Review of other/old records reveals:
� Clinical information was obtained by an independent historian:
� Prescriptions/Medications Considered but not given:
� Further testing considered but not performed:
Risk of Complications and/or Morbidity or Mortality of Patient Management
� Social determinants of health affecting care:
� Discussion with other providers (PCP, Hospitalists, Consultants, etc):
� Escalation of care including admission/observation vs risk of discharge considered: Case discussed with orthopedics, Dr. Watt, x-rays reviewed with him. He states that patient should be nonweightbearing for 6 weeks, otherwise
no further interventions necessary.
Calls placed to [facility]...no answer. Case management consult placed for AM, pt to be in ED awaiting discharge planning later this AM so he can be assured of NWB.
<Maral Garcia, DO - Last Filed: 12/25/24 03:42>
Update Note
Update Note:
Patient presents to the Emergency Department with fall right hip pain____
Number and Complexity of Problems Addressed at the Encounter
� Chronic conditions affecting care:
� Acute Exacerbation and/or Progression of Chronic Illness:
� Differential Diagnosis includes: But not limited to hip contusion, pelvic fracture, hip fracture, etc. etc.
Amount and/or Complexity of Data to be Reviewed and Analyzed
� I performed an independent evaluation of and my interpretation is:
EKG:
CT:
Xrays:R hip fx noted with hardware in place
Laboratory Studies: Mild anemia, otherwise generally unremarkable
Other:
� Review of other/old records reveals:
� Clinical information was obtained by an independent historian:
� Prescriptions/Medications Considered but not given:
� Further testing considered but not performed:
Risk of Complications and/or Morbidity or Mortality of Patient Management
� Social determinants of health affecting care:
� Discussion with other providers (PCP, Hospitalists, Consultants, etc):
� Escalation of care including admission/observation vs risk of discharge considered: Case discussed with orthopedics, Dr. Watt, x-rays reviewed with him. He states that patient should be nonweightbearing for 6 weeks, otherwise
no further interventions necessary.
Calls placed to [facility]...no answer. Case management consult placed for AM, pt to be in ED awaiting discharge planning later this AM so he can be assured of NWB.
03:35
Patient continues with significant right lateral hip pain requiring several/repeated doses of IV morphine for pain control.
Upon further discussion with patient and review of records, he resides at [facility].
He clearly, at this point, cannot return to his independent living arrangement�will require senior living level care as he must be nonweightbearing for at least 6 weeks.
I am also concerned with patient's continued level of significant pain thus we will continue IV morphine and plan to admit to hospitalist service for pain management/pain control and will plan for orthopedic evaluation, case management evaluation.
ED Attending Note
<Karly Albrecht MD - Last Filed: 12/25/24 02:08>
-
Portions of this chart may have been created with voice recognition software.� Occasional wrong word or��sound alike� substitutions may have occurred due to the inherent limitations of voice recognition software.
Discharge Plan
Departure
Patient Disposition: Admit
Date of Disposition: 12/25/24
Time of Disposition: 03:40
Admit to: Med/Surg
Admit to doctor: Brayan
Presentation/result/management discussed w/ accepting MD/DO: Hospitalist
Condition: Fair
Discharge Problem:
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
Prescriptions:
No Action
furosemide 40 mg Tablet
40 mg PO DAILY
famotidine 40 mg Tablet
40 mg PO DAILY
ferrous sulfate 325 mg (65 mg iron) Tablet
325 mg PO DAILY
calcium carbonate [Tums 500] 500 mg calcium (1,250 mg) Tablet,Chewable
500 mg PO BID PRN (Reason: indigestion)
acetaminophen [Tylenol Extra Strength] 500 mg Capsule
1,000 mg PO Q8H PRN (Reason: pain)
duloxetine 30 mg Capsule,Delayed Release(Dr/Ec)
30 mg PO BID
lactulose 10 gram/15 mL Solution
15 ml PO DAILY
Incruse Ellipta 62.5 mcg/actuation Blister With Device
1 inh INHALATION DAILY
melatonin 3 mg Capsule
3 mg PO HS PRN (Reason: sleep)
potassium chloride
10 meq PO DAILY
gabapentin 100 mg Capsule
100 mg PO TID
fluticasone propionate [Flonase] 50 mcg/actuation [place],Suspension
2 spray INTRANASAL BID
Referrals:
UNKNOWN - PT DOES,NOT KNOW [Family Provider]
Interventions
Interventions:
*Risk Screen - Suicide Last Done: 12/24/24 19:55
*General Assessment Last Done: 12/24/24 19:55
*Neglect/Abuse Screening Last Done: 12/24/24 19:55
*ED- Fall Risk Assessment Last Done: 12/24/24 19:55
*ED COVID-19 Vaccine History Last Done: 12/24/24 19:55
ED-Musculoskeletal Assessment Last Done: 12/24/24 20:10
Discharge Date and Time
Print Language: EGYPTIAN
[2024-12-25] VITALS (10 sets, daily range): BP systolic 92–122; BP diastolic 61–77
[2024-12-25] MEDS: MORPHINE SULFATE 4 MG IV ×2 (01:20→03:37)
--- NOTE | 2024-12-25 04:24 | HPS.HSE ---
Family Physician
-
Family Physician: NOT KNOW UNKNOWN - PT DOES
Chief Complaint
-
R Hip Pain
History of Present Illness
Patient is a 79y M with PMH significant for cirrhosis, hypertension and chronic ambulatory dysfunction who presents to ED complaining of R hip pain s/p fall this evening. Patient states that he was attempting to exit his wheelchair to use the
bathroom this evening when he lost his balance and fell - landing on his R hip. He denies striking his head or losing consciousness. Patient states that he has had similar episodes in the past - typically when standing from a seated position. He
uses a wheelchair within his apartment, but ambulates outside of the home with a rolling walker.
Patient noted immediate pain in the R hip after the fall. He has had prior bilateral PARUL.
Imaging in the ED shows evidence of R greater trochanter fracture. Prosthesis in place.
Patient denies any recent illness, chest pain, fevers / chills, N/V/D, urinary complaints, etc.
He denies any recent medication changes.
He states that he has been having issues with exertional dyspnea for over a year now. This is being evaluated as an outpatient and he has plans to see Pulmonology.
Medical History
Past Medical History
Past Medical History: Reports Other
Additional Past Medical History:
Alcoholic Cirrhosis with Chronic Metabolic Encephalopathy
Hypertension
CKD III
Secondary Hyperparathyroidism
Anxiety / Depression
Iron Deficiency Anemia
Paroxysmal Atrial Fibrillation
Orthostatic Hypotension
Peripheral Neuropathy
MGUS / Small Cell B-Cell Lymphoma
Asthma
Past Surgical History: Reports Other
Additional Past Surgical History:
Hernia Repair
Bilateral PARUL
Right Ankle ORIF
Thoracentesis
Left Vitrectomy
Cataracts
Right Shoulder Surgery
Social History
Tobacco: Non-smoker
Alcohol: Former
Drug: None
Living: Assisted Living
Family History
Family History: Not pertinent
Allergies / Home Medications
Allergies reflects when Allergies were last updated in [facility].
Home Medications with original date entered in [facility]
Allergy/Medication List:
Allergies
Allergy/AdvReac Type Severity Reaction Status Date / Time
lisinopril Allergy cough Verified 12/24/24 20:02
Home Medications
acetaminophen 500 mg capsule 500 mg PO Q6H 07/23/23
calcium carbonate 500 mg PO BID PRN indigestion 07/23/23
duloxetine 30 mg capsule,delayed release 30 mg PO BID 07/23/23
famotidine 40 mg tablet 40 mg PO DAILY 07/23/23
ferrous sulfate 325 mg (65 mg iron) tablet 325 mg PO DAILY 07/23/23
furosemide 40 mg tablet 40 mg PO DAILY 07/23/23
lactulose 10 gram/15 mL oral solution 15 ml PO DAILY 07/23/23
melatonin 3 mg capsule 3 mg PO HS PRN sleep 07/23/23
umeclidinium 62.5 mcg/actuation blister powder for inhalation (Incruse Ellipta) 1 inh inhalation DAILY 07/23/23
gabapentin 300 mg capsule 300 mg PO BID@0800,1400 12/25/24
gabapentin 600 mg tablet 600 mg PO HS 12/25/24
potassium chloride 10 mEq tablet,extended release (Klor-Con) 10 meq PO DAILY 12/25/24
tramadol 50 mg tablet 50 mg PO Q8H PRN Pain 12/25/24
Review of Systems
-
History Source: Patient
A 12 point ROS was completed and negative except as noted: Yes
Constitutional: Denies Fever or Chills
Respiratory: Reports Trouble Breathing; Denies Cough
Cardiac: Denies Chest Pain or Palpitations
Abdomen/GI: Denies Abdominal Pain, Nausea, Vomiting or Diarrhea
: Denies Dysuria, Frequency or Flank Pain
Musculoskeletal: Reports Joint Pain; Denies Edema
Neurological: Reports Dizzy; Denies Headache
Psych: Denies Depression or Anxiety
Physical Exam
Vital Signs
Vital Signs
Temp Pulse Resp BP Pulse Ox
97.6 F 83 12 98/63 98
12/24/24 19:55 12/25/24 03:30 12/25/24 03:30 12/25/24 03:30 12/25/24 03:30
Physical Exam
General: Other (Thin 79y M in mild - moderate distress due to pain.)
HEENT: Moist mucous membranes and PERRLA
Respiratory: Other (Decreased at bases - otherwise clear.)
Cardiac: S1/S2, Regular Rhythm and Murmur (II/ ARABELLA)
GI: Soft, Non Tender, Non Distended and Normal Bowel Sounds
Musculoskeletal: No Clubbing, No Cyanosis, No Edema and Other (Pain with ROM of the RLE. Tenderness over R greater trochanter)
Neuro: AO x 3
Laboratory Results
-
12/24/24 20:06
12/24/24 20:06
Laboratory Results
PT 15.0 Sec (11.4-14.6) H 12/24/24 20:06
INR 1.13 12/24/24 20:06
APTT 33.3 Sec (23.4-35.0) 12/24/24 20:06
Total Bilirubin 1.1 mg/dl (0.2-1.3) 12/24/24 20:06
AST 29 U/L (17-59) 12/24/24 20:06
ALT 13 U/L (0-50) 12/24/24 20:06
Alkaline Phosphatase 80 U/L (38-126) 12/24/24 20:06
Impression/Plan
-
A/P: Patient is a 79y M with PMH significant for hypertension, cirrhosis and neuropathy who presents to ED complaining of R hip pain s/p fall this evening.
Right Periprosthetic Femur Fracture
- Admit for further evaluation and treatment.
- X-rays shows fracture mostly involving the greater trochanter of the R femur.
- Prosthesis / femoral shaft appears mostly intact.
- ED reviewed with Orthopedics who recommend no operative intervention. NWB to the RLE for 6 weeks.
- Patient currently in assisted living and will require higher level of care for needed assistance.
- Supportive care, pain control, PT / OT, etc.
Alcoholic Cirrhosis
Chronic Metabolic Encephalopathy
- Stable. Continue current med regimen including daily lactulose.
- Continue diuretic regimen. Follow I/Os, daily weights, etc.
Exertional Dyspnea
Hypoxemia - ? Acuity
- Patient noted to have mild hypoxemia in the ED (SpO2 = 91% on room air) and reports months of exertional dyspnea.
- Murmur noted on exam. Patient denies knowledge of murmur. Echo done in 2022 with normal LVEF and no significant valvular lesions.
- Update Echo.
- O2 support as needed.
- Encourage incentive spirometry while mobility is limited.
Asthma without Acute Exacerbation
- No cough, wheezing or other evident symptoms.
- Continue usual inhaled medications. Albuterol PRN.
Iron Deficiency Anemia
- Stable. Hgb is at / near known baseline.
- Continue daily iron supplementation.
Peripheral Neuropathy
- Stable. Continue gabapentin.
DVT Prophylaxis: Lovenox
Code Status: DNR
[2024-12-25] MEDS: FLUSH (NSS) 2 FLUSH IV (06:33)
[2024-12-25] MEDS: DILAUDID 0.5 MG IV ×3 (06:33→16:39)
[2024-12-25] MEDS: SPIRIVA RESPIMAT 2.5 MCG 2 PUFF INH (07:38)
--- NOTE | 2024-12-25 07:45 | W.PN.HOSP.TC ---
Today's Communication/Plan
-
Pain control
See plan
Assessment / Plan
Assessment / Plan
Physical Exam
General: Other (Thin 79y M in mild - moderate distress due to pain.)
HEENT: Moist mucous membranes and PERRLA
Respiratory: Other (Decreased at bases - otherwise clear.)
Cardiac: S1/S2, Regular Rhythm and Murmur (II/ ARABELLA)
GI: Soft, Non Tender, Non Distended and Normal Bowel Sounds
Musculoskeletal: No Clubbing, No Cyanosis, No Edema and Other (Pain with ROM of the RLE. Tenderness over R greater trochanter). RLE neurovascularly intact distally.
Neuro: AO x 3
Assessment/Plan
79y M with PMH significant for cirrhosis, hypertension and chronic ambulatory dysfunction who presents to ED complaining of R hip pain s/p fall this evening. Patient states that he was attempting to exit his wheelchair to use the bathroom this
evening when he lost his balance and fell - landing on his R hip. He denies striking his head or losing consciousness. Patient states that he has had similar episodes in the past - typically when standing from a seated position. He uses a
wheelchair within his apartment, but ambulates outside of the home with a rolling walker.
Patient noted immediate pain in the R hip after the fall. He has had prior bilateral PARUL.
Imaging in the ED shows evidence of R greater trochanter fracture. Prosthesis in place.
Patient denied any recent illness, chest pain, fevers / chills, N/V/D, urinary complaints, etc.
He denies any recent medication changes.
He states that he has been having issues with exertional dyspnea for over a year now. This is being evaluated as an outpatient and he has plans to see Pulmonology.
Right Periprosthetic Femur Fracture
- X-rays shows fracture mostly involving the greater trochanter of the R femur.
- Prosthesis / femoral shaft appears mostly intact.
- ED reviewed with Orthopedics who recommend no operative intervention. NWB to the RLE for 6 weeks.
- Patient currently in assisted living and will require higher level of care for needed assistance.
- Supportive care, pain control, PT / OT, etc.
Alcoholic Cirrhosis
Chronic Metabolic Encephalopathy
- Stable. Continue current med regimen including daily lactulose.
- Continue diuretic regimen. Follow I/Os, daily weights, etc.
Exertional Dyspnea
Hypoxemia - ? Acuity
- Patient noted to have mild hypoxemia in the ED (SpO2 = 91% on room air) and reports months of exertional dyspnea.
- Murmur noted on exam. Patient denies knowledge of murmur. Echo done in 2022 with normal LVEF and no significant valvular lesions.
- Update Echo.
- O2 support as needed.
- Encourage incentive spirometry while mobility is limited.
Asthma without Acute Exacerbation
- No cough, wheezing or other evident symptoms.
- Continue usual inhaled medications. Albuterol PRN.
Iron Deficiency Anemia
- Stable. Hgb is at / near known baseline.
- Continue daily iron supplementation.
Peripheral Neuropathy
- Stable. Continue gabapentin.
Hypertension
DVT Prophylaxis: Lovenox
Code Status: DNR
Anticipated Discharge: 24 - 48 hours
Subjective/Interval History
-
Date of Service: December 25, 2024
Patient was seen and examined. He had a lot of pain in his right leg from the fracture.
Objective Data
-
Labs:
Laboratory Results
12/24/24
20:06
WBC 6.2
Hgb 12.5 L
Hct 38.4 L
Plt Count 148
PT 15.0 H
INR 1.13
APTT 33.3
Sodium 136
Potassium 3.6
Chloride 96 L
Carbon Dioxide 33 H
BUN 18
Creatinine 0.8
Glucose 110 H
Calcium 8.6
Total Bilirubin 1.1
AST 29
ALT 13
Alkaline Phosphatase 80
Vital Signs:
Vital Signs
Temp Pulse Resp BP Pulse Ox
97.8 F 68 16 117/77 97
12/25/24 06:00 12/25/24 07:43 12/25/24 07:43 12/25/24 06:00 12/25/24 07:43
[2024-12-25] MEDS: NEURONTIN 300 MG PO ×2 (09:47→15:36)
[2024-12-25] MEDS: TYLENOL 1000 MG PO ×2 (09:47→19:07)
[2024-12-25] MEDS: PEPCID 40 MG PO (09:47)
[2024-12-25] MEDS: DUPHALAC/CHRONULAC PO ×2 (09:48→09:54)
[2024-12-25] MEDS: LASIX 40 MG PO (09:48)
[2024-12-25] MEDS: FEOSOL 325 MG PO (09:48)
[2024-12-25] MEDS: CYMBALTA DELAYED RELEASE 30 MG PO ×2 (09:48→19:31)
[2024-12-25] MEDS: KCL 10 MEQ PO ×2 (09:48→19:31)
--- NOTE | 2024-12-25 10:37 | CM ---
Addendum entered by Rommel Coreas 12/25/24 10:56:
Per [facility] case manage, pt's admission upgraded to inpatient. IMM reviewed, placed on chart, pt has a copy.
Original Note:
CM following re: discharge planning.
Reviewed pt's chart, met with pt.
Pt is a 79 year old male, admitted with primary dx of Right Periprosthetic Femur Fracture. Per Orthopedic, no operative intervention, NWB to the [facility] for 6 weeks.
Pt reports he lives at [facility], spouse lives at home and pt has supportive son who lives an hour away. Pt reports he ambulates with a walker and a cane. Pt stated he is not able to walk at all right now and he feels he will need to go to a SNF
and he preferred [facility].
PT and OT will evaluate the pt to determine a level of care at discharge.
D/C plan: most likely [facility].
CM will follow with discharge plan updates as hospitalization progresses
[2024-12-25] MEDS: ROXICODONE 5 MG PO ×3 (11:33→21:02)
[2024-12-25] MEDS: LOVENOX 40 MG SC (19:08)
--- NOTE | 2024-12-25 19:30 | PTCARENOTE ---
Patient woke from nap at change of shift and was disoriented per PCT. Reported 'he wanted to get out of bed and put on his underwear.' Went in and reoriented patient. Placed bed alarm on just in case. Patient able to tell me that he's in the
hospital, that he broke his hip and he believes he had just woken up from a dream.
[2024-12-25] MEDS: SENOKOT-S 1 TABLET PO (19:31)
[2024-12-25] MEDS: NEURONTIN 600 MG PO (21:02)
[2024-12-26] VITALS (9 sets, daily range): BP systolic 88–107; BP diastolic 53–65; PULSE 97; BMI 20.2
[2024-12-26] MEDS: TYLENOL 1000 MG PO ×2 (06:21→17:02)
[2024-12-26] MEDS: SPIRIVA RESPIMAT 2.5 MCG 2 PUFF INH (07:36)
[2024-12-26 07:42] LABS: Blood Urea Nitrogen 20 mg/dl (9-20); Calcium 8.4 mg/dl (8.4-10.2); Carbon Dioxide 38 mmol/L (22-30); Chloride 95 mmol/L (98-107); Estimated Creatinine Clearance 70 ml/min; Glucose 103 mg/dl (70-99); Hematocrit 34.8 % (39.0-52.0); Hemoglobin 11.1 g/dL (13.0-18.0); Mean Corp Hgb Conc. 31.9 g/dL (33.0-37.0); Mean Corpuscular Volume 88.3 fL (80.0-94.0); Platelet Count 99 10^3/uL (130-400); Potassium 3.8 mmol/L (3.5-5.1); Red Cell Dist. Width 14.8 % (11.5-14.5); Sodium 137 mmol/L (135-145); eGFR > 60.00
[2024-12-26] MEDS: NEURONTIN 300 MG PO ×2 (08:47→13:32)
[2024-12-26] MEDS: CYMBALTA DELAYED RELEASE 30 MG PO ×2 (08:47→20:58)
[2024-12-26] MEDS: KCL 10 MEQ PO ×2 (08:47→21:00)
[2024-12-26] MEDS: SENOKOT-S 1 TABLET PO ×2 (08:47→20:58)
[2024-12-26] MEDS: LASIX 40 MG PO (08:47)
[2024-12-26] MEDS: FEOSOL 325 MG PO (08:49)
[2024-12-26] MEDS: PEPCID 40 MG PO (08:49)
[2024-12-26] MEDS: MIRALAX PO (08:51)
[2024-12-26] MEDS: DUPHALAC/CHRONULAC 10 GRAMS PO (08:51)
--- NOTE | 2024-12-26 10:45 | W.PN.HOSP.TC ---
Today's Communication/Plan
-
Pain control
Placement Pending
Telemetry monitoring
Assessment / Plan
Assessment / Plan
Physical Exam
General: Other (Thin 79y M in mild - moderate distress due to pain.)
HEENT: Moist mucous membranes and PERRLA
Respiratory: Other (Decreased at bases - otherwise clear.)
Cardiac: S1/S2, Regular Rhythm and Murmur (II/ ARABELLA)
GI: Soft, Non Tender, Non Distended and Normal Bowel Sounds
Musculoskeletal: No Clubbing, No Cyanosis, No Edema and Other (Pain with ROM of the RLE. Tenderness over R greater trochanter). RLE neurovascularly intact distally.
Neuro: AO x 3
Assessment/Plan
79y M with PMH significant for cirrhosis, hypertension and chronic ambulatory dysfunction who presents to ED complaining of R hip pain s/p fall this evening. Patient states that he was attempting to exit his wheelchair to use the bathroom this
evening when he lost his balance and fell - landing on his R hip. He denies striking his head or losing consciousness. Patient states that he has had similar episodes in the past - typically when standing from a seated position. He uses a
wheelchair within his apartment, but ambulates outside of the home with a rolling walker.
Patient noted immediate pain in the R hip after the fall. He has had prior bilateral PARUL.
Imaging in the ED shows evidence of R greater trochanter fracture. Prosthesis in place.
Patient denied any recent illness, chest pain, fevers / chills, N/V/D, urinary complaints, etc.
He denies any recent medication changes.
He states that he has been having issues with exertional dyspnea for over a year now. This is being evaluated as an outpatient and he has plans to see Pulmonology.
Right Periprosthetic Femur Fracture
- X-rays shows fracture mostly involving the greater trochanter of the R femur.
- Prosthesis / femoral shaft appears mostly intact.
- ED reviewed with Orthopedics who recommend no operative intervention. NWB to the RLE for 6 weeks.
- Patient currently in assisted living and will require higher level of care for needed assistance.
- Supportive care, pain control, PT / OT, etc.
Alcoholic Cirrhosis
Chronic Metabolic Encephalopathy
- Stable. Continue current med regimen including daily lactulose.
- Continue diuretic regimen. Follow I/Os, daily weights, etc.
Exertional Dyspnea
Hypoxemia - ? Acuity
- Patient noted to have mild hypoxemia in the ED (SpO2 = 91% on room air) and reports months of exertional dyspnea.
- Murmur noted on exam. Patient denies knowledge of murmur. Echo done in 2022 with normal LVEF and no significant valvular lesions.
- Update Echo.
- O2 support as needed.
- Encourage incentive spirometry while mobility is limited.
Irregular Heart Rhythm on Exam
- EKG
- Monitor on tele
Thrombocytopenia
- Low probability of HIT, 4Ts score is 2 or maximum 3
- Could be from patient's cirrhosis
- Continue to monitor CBC
Asthma without Acute Exacerbation
- No cough, wheezing or other evident symptoms.
- Continue usual inhaled medications. Albuterol PRN.
Iron Deficiency Anemia
- Stable. Hgb is at / near known baseline.
- Continue daily iron supplementation.
Peripheral Neuropathy
- Stable. Continue gabapentin.
Hypertension
DVT Prophylaxis: Lovenox
Code Status: DNR
Anticipated Discharge: 24 - 48 hours
Subjective/Interval History
-
Date of Service: December 26, 2024
Patient was seen and examined. He denied any complaints.
Objective Data
-
Labs:
Laboratory Results
12/26/24
05:34
WBC 4.6 L
Hgb 11.1 L
Hct 34.8 L
Plt Count 99 L D
Sodium 137
Potassium 3.8
Chloride 95 L
Carbon Dioxide 38 H
BUN 20
Creatinine 0.9
Glucose 103 H
Calcium 8.4
Vital Signs:
Vital Signs
Temp Pulse Resp BP Pulse Ox
98.5 F 65 16 107/65 96
12/26/24 07:15 12/26/24 08:47 12/26/24 07:42 12/26/24 08:47 12/26/24 07:42
I&O
12/25/24 12/26/24 12/27/24
06:59 06:59 06:59
Intake Total 840 / 840 480 / 480
Output Total 200 / 200
Balance 640 / 640 480 / 480
[2024-12-26] MEDS: ROXICODONE 5 MG PO ×2 (11:07→15:21)
--- NOTE | 2024-12-26 13:35 | CM ---
CM following re: discharge planning.
Reviewed pt's chart, met with pt.
PT and OT evaluations noted - SNF level of care recommended. Pt is aware, expressed his agreement and pt requested [facility]. A referral to [facility] made.
Pt reports he lives at [facility], spouse lives at home and pt has supportive son who lives an hour away. Pt ambulates with a walker and a cane.
D/C plan: [facility] when medically stable.
CM will follow to assist pt with discharge to [facility].
[2024-12-26] MEDS: LOVENOX 40 MG SC (17:02)
[2024-12-26] MEDS: NEURONTIN 600 MG PO (20:58)
[2024-12-27] VITALS (9 sets, daily range): BP systolic 77–113; BP diastolic 51–69; PULSE 91–104; O2SAT 96; BMI 20.1
[2024-12-27 06:28] LABS: Hematocrit 33.3 % (39.0-52.0); Hemoglobin 10.9 g/dL (13.0-18.0); Mean Corp Hgb Conc. 32.7 g/dL (33.0-37.0); Mean Corpuscular Volume 86.9 fL (80.0-94.0); Platelet Count 112 10^3/uL (130-400); Red Cell Dist. Width 15.0 % (11.5-14.5)
[2024-12-27] MEDS: TYLENOL PO (06:32)
[2024-12-27 06:40] LABS: Blood Urea Nitrogen 25 mg/dl (9-20); Calcium 8.6 mg/dl (8.4-10.2); Carbon Dioxide 33 mmol/L (22-30); Chloride 99 mmol/L (98-107); Estimated Creatinine Clearance 70 ml/min; Glucose 115 mg/dl (70-99); Potassium 3.7 mmol/L (3.5-5.1); Sodium 136 mmol/L (135-145); eGFR > 60.00
[2024-12-27] MEDS: SPIRIVA RESPIMAT 2.5 MCG 2 PUFF INH (07:52)
[2024-12-27] MEDS: MIRALAX PO (08:47)
[2024-12-27] MEDS: DUPHALAC/CHRONULAC 10 GRAMS PO (08:51)
[2024-12-27] MEDS: PEPCID 40 MG PO (08:52)
[2024-12-27] MEDS: CYMBALTA DELAYED RELEASE 30 MG PO ×2 (08:52→20:00)
[2024-12-27] MEDS: FEOSOL 325 MG PO (08:52)
[2024-12-27] MEDS: LASIX 40 MG PO (08:52)
[2024-12-27] MEDS: SENOKOT-S 1 TABLET PO ×2 (08:52→20:00)
[2024-12-27] MEDS: NEURONTIN 300 MG PO ×2 (08:52→13:29)
[2024-12-27] MEDS: KCL 10 MEQ PO ×2 (08:53→20:00)
--- NOTE | 2024-12-27 11:01 | CM ---
CM following re: discharge planning.
Reviewed pt's chart, met with pt.
PT and OT continue recommending SNF level of care.
CM spoke to [facility] director hardware and she confirmed they will have a bed available for pt's admission to [facility] tomorrow.
Pt lives at [facility], spouse lives at home and pt has supportive son who lives an hour away. Pt ambulates with a walker and a cane.
D/C plan: [facility] when medically stable.
CM will follow to assist pt with discharge to [facility].
--- NOTE | 2024-12-27 11:28 | PTCARENOTE ---
pt aaox3. states pain in right hip meds given as ordered. room air. ferreira. pt oob in chair 1 person assist to return to bed. nwb on right leg.
[2024-12-27] MEDS: ROXICODONE 5 MG PO ×2 (13:29→17:12)
--- NOTE | 2024-12-27 14:29 | W.PN.HOSP.TC ---
Today's Communication/Plan
-
[facility] bed available tomorrow per case management
Assessment / Plan
Assessment / Plan
Physical Exam
General: Other (Thin 79y M in mild - moderate distress due to pain.)
HEENT: Moist mucous membranes and PERRLA
Respiratory: Other (Decreased at bases - otherwise clear.)
Cardiac: S1/S2, Regular Rhythm and Murmur (II/ ARABELLA)
GI: Soft, Non Tender, Non Distended and Normal Bowel Sounds
Musculoskeletal: No Clubbing, No Cyanosis, No Edema and Other (Pain with ROM of the RLE. Tenderness over R greater trochanter). RLE neurovascularly intact distally.
Neuro: AO x 3
Assessment/Plan
79y M with PMH significant for cirrhosis, hypertension and chronic ambulatory dysfunction who presents to ED complaining of R hip pain s/p fall this evening. Patient states that he was attempting to exit his wheelchair to use the bathroom this
evening when he lost his balance and fell - landing on his R hip. He denies striking his head or losing consciousness. Patient states that he has had similar episodes in the past - typically when standing from a seated position. He uses a
wheelchair within his apartment, but ambulates outside of the home with a rolling walker.
Patient noted immediate pain in the R hip after the fall. He has had prior bilateral PARUL.
Imaging in the ED shows evidence of R greater trochanter fracture. Prosthesis in place.
Patient denied any recent illness, chest pain, fevers / chills, N/V/D, urinary complaints, etc.
He denies any recent medication changes.
He states that he has been having issues with exertional dyspnea for over a year now. This is being evaluated as an outpatient and he has plans to see Pulmonology.
Right Periprosthetic Femur Fracture
- X-rays shows fracture mostly involving the greater trochanter of the R femur.
- Prosthesis / femoral shaft appears mostly intact.
- ED reviewed with Orthopedics who recommend no operative intervention. NWB to the RLE for 6 weeks.
- Patient currently in assisted living and will require higher level of care for needed assistance.
- Supportive care, pain control, PT / OT, etc.
Alcoholic Cirrhosis
Chronic Metabolic Encephalopathy
- Stable. Continue current med regimen including daily lactulose.
- Continue diuretic regimen. Follow I/Os, daily weights, etc.
Exertional Dyspnea
Hypoxemia - ? Acuity
- Patient noted to have mild hypoxemia in the ED (SpO2 = 91% on room air) and reports months of exertional dyspnea.
- Murmur noted on exam. Patient denies knowledge of murmur. Echo done in 2022 with normal LVEF and no significant valvular lesions.
- Update Echo showed normal biventricular size and systolic function without regional wall motion abnormality; left ventricular ejection fraction is 55-60% by visual assessment; mild aortic regurgitation; estimated pulmonary artery pressure of 31
mmHg, assuming a right atrial pressure of 3 mmHg; dilated aortic root. 4.1 cm. 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
compared to prior from June 22, 2022, ascending aorta is 4.2 cm, previously 3.8 cm.
- O2 support as needed.
- Encourage incentive spirometry while mobility is limited.
Irregular Heart Rhythm on Exam on 12/26/24
- Monitor on tele -- no A-Fib or Flutter just some SVT episodes
Thrombocytopenia
- Low probability of HIT, 4Ts score is 2 or maximum 3
- Could be from patient's cirrhosis
- Continue to monitor CBC
Asthma without Acute Exacerbation
- No cough, wheezing or other evident symptoms.
- Continue usual inhaled medications. Albuterol PRN.
Iron Deficiency Anemia
- Stable. Hgb is at / near known baseline.
- Continue daily iron supplementation.
Peripheral Neuropathy
- Stable. Continue gabapentin.
Hypertension
DVT Prophylaxis: Lovenox
Code Status: DNR
Anticipated Discharge: 24 - 48 hours
Subjective/Interval History
-
Date of Service: December 27, 2024
Patient was seen and examined. He denied any significant or any other complaints. He said he has been having bowel movements.
Objective Data
-
Labs:
Laboratory Results
12/27/24
05:33
WBC 4.5 L
Hgb 10.9 L
Hct 33.3 L
Plt Count 112 L
Sodium 136
Potassium 3.7
Chloride 99
Carbon Dioxide 33 H
BUN 25 H
Creatinine 0.9
Glucose 115 H
Calcium 8.6
Vital Signs:
Vital Signs
Temp Pulse Resp BP Pulse Ox
98.1 F 85 16 108/60 97
12/27/24 11:05 12/27/24 11:05 12/27/24 11:05 12/27/24 11:05 12/27/24 11:05
I&O
12/26/24 12/27/24 12/28/24
06:59 06:59 06:59
Intake Total 840 / 840 540 / 540 480 / 480
Output Total 200 / 200 750 / 750 375 / 375
Balance 640 / 640 -210 / -210 105 / 105
[2024-12-27] MEDS: TYLENOL 1000 MG PO (17:12)
[2024-12-27] MEDS: LOVENOX 40 MG SC (17:12)
[2024-12-27] MEDS: NEURONTIN 600 MG PO (22:15)
[2024-12-28 03:00] VITALS: BP 100/54
[2024-12-28] MEDS: HALDOL 1 MG IM (03:40)
--- NOTE | 2024-12-28 03:48 | W.PN.UPDATE ---
Addendum entered and electronically signed by KMI Lamas 12/28/24 06:03:
returned my call at 0600 and has been updated. She mentions he has had episodes of hospital delirium in the past. She is in [facility] for a meeting but she will have access to her voicemail.
Original Note:
Update Note
Progress Note Update
Code purple called at 0330 approx due to patient sitting at bottom of bed exhibiting agitation along with confusion. He says he feels like he is in assisted and doesn't understand why he can't leave. Explained situation and how he will be leaving later
today. Not redirectable. Message left for his to update. Haldol IM x1. Goal is for patient/staff safety. Ammonia level ordered for this am.
[2024-12-28 05:36] LABS: Hematocrit 32.9 % (39.0-52.0); Hemoglobin 10.5 g/dL (13.0-18.0); Mean Corp Hgb Conc. 31.9 g/dL (33.0-37.0); Mean Corpuscular Volume 87.7 fL (80.0-94.0); Platelet Count 112 10^3/uL (130-400); Red Cell Dist. Width 15.0 % (11.5-14.5)
[2024-12-28 05:54] LABS: Ammonia 24 umol/L (9-30)
[2024-12-28 06:00] LABS: Blood Urea Nitrogen 22 mg/dl (9-20); Calcium 8.3 mg/dl (8.4-10.2); Carbon Dioxide 29 mmol/L (22-30); Chloride 95 mmol/L (98-107); Estimated Creatinine Clearance 79 ml/min; Glucose 130 mg/dl (70-99); Potassium 3.7 mmol/L (3.5-5.1); Sodium 132 mmol/L (135-145); eGFR > 60.00
[2024-12-28] MEDS: TYLENOL 1000 MG PO (06:00)
--- NOTE | 2024-12-28 06:30 | PTCARENOTE ---
Pt became confused, uncooperative, combative and a danger to himself. A Code Purple was called at 03:30. An order for four point soft restraints was entered by [employer] and for a 2mL doses of IM Haldol. Pt care is ongoing, see restraint assessments.
[2024-12-28 07:15] VITALS: BP 104/61
[2024-12-28] MEDS: DUPHALAC/CHRONULAC 10 GRAMS PO (07:44)
[2024-12-28] MEDS: KCL 10 MEQ PO (07:45)
[2024-12-28] MEDS: MIRALAX 17 GRAMS PO (07:45)
[2024-12-28] MEDS: SENOKOT-S 1 TABLET PO (07:45)
[2024-12-28] MEDS: FEOSOL 325 MG PO (07:45)
[2024-12-28] MEDS: NEURONTIN 300 MG PO ×2 (07:45→12:52)
[2024-12-28] MEDS: CYMBALTA DELAYED RELEASE 30 MG PO (07:45)
[2024-12-28] MEDS: PEPCID 40 MG PO (07:45)
[2024-12-28] MEDS: LASIX 40 MG PO (08:27)
[2024-12-28] MEDS: SPIRIVA RESPIMAT 2.5 MCG 2 PUFF INH (08:46)
--- NOTE | 2024-12-28 10:23 | W.PN.HOSP.TC ---
Today's Communication/Plan
-
Discharge today
Assessment / Plan
Assessment / Plan
Physical Exam
General: Other (Thin 79y M in mild - moderate distress due to pain.)
HEENT: Moist mucous membranes and PERRLA
Respiratory: Other (Decreased at bases - otherwise clear.)
Cardiac: S1/S2, Regular Rhythm and Murmur (II/ ARABELLA)
GI: Soft, Non Tender, Non Distended and Normal Bowel Sounds
Musculoskeletal: No Clubbing, No Cyanosis, No Edema and Other (Pain with ROM of the RLE. Tenderness over R greater trochanter). RLE neurovascularly intact distally.
Neuro: AO x 3
Assessment/Plan
79y M with PMH significant for cirrhosis, hypertension and chronic ambulatory dysfunction who presents to ED complaining of R hip pain s/p fall this evening. Patient states that he was attempting to exit his wheelchair to use the bathroom this
evening when he lost his balance and fell - landing on his R hip. He denies striking his head or losing consciousness. Patient states that he has had similar episodes in the past - typically when standing from a seated position. He uses a
wheelchair within his apartment, but ambulates outside of the home with a rolling walker.
Patient noted immediate pain in the R hip after the fall. He has had prior bilateral PARUL.
Imaging in the ED shows evidence of R greater trochanter fracture. Prosthesis in place.
Patient denied any recent illness, chest pain, fevers / chills, N/V/D, urinary complaints, etc.
He denies any recent medication changes.
He states that he has been having issues with exertional dyspnea for over a year now. This is being evaluated as an outpatient and he has plans to see Pulmonology.
Right Periprosthetic Femur Fracture
Ambulatory dysfunction with history of falls
- X-rays shows fracture mostly involving the greater trochanter of the R femur.
- Prosthesis / femoral shaft appears mostly intact.
- ED reviewed with Orthopedics who recommend no operative intervention. NWB to the RLE for 6 weeks.
- Patient currently in assisted living and will require higher level of care for needed assistance.
- Supportive care, pain control, PT / OT, etc.
Alcoholic Cirrhosis
Chronic Metabolic Encephalopathy
- Seemed to be pretty oriented this hospitalization.
- Stable. Continue current med regimen including daily lactulose.
- Continue diuretic regimen. Follow I/Os, daily weights, etc.
Chronic Exertional Dyspnea
- Reports months of (CHRONIC) exertional dyspnea.
- ON ROOM AIR
- Murmur noted on exam. Patient denies knowledge of murmur. Echo done in 2022 with normal LVEF and no significant valvular lesions.
- Update Echo showed normal biventricular size and systolic function without regional wall motion abnormality; left ventricular ejection fraction is 55-60% by visual assessment; mild aortic regurgitation; estimated pulmonary artery pressure of 31
mmHg, assuming a right atrial pressure of 3 mmHg; dilated aortic root. 4.1 cm.
ectatic ascending aorta 4.2 cm; compared to prior from June 22, 2022, ascending aorta is 4.2 cm, previously 3.8 cm.
- O2 support as needed.
- Encourage incentive spirometry while mobility is limited.
- Patient says he is already scheduled to see pulmonary outpatient for this
Irregular Heart Rhythm on Exam on 12/26/24 from PACs
- Monitor on telemetry -- no A-Fib or Flutter just some SVT episodes
PAF (not on OAC due to fall/bleeding risk, unable to tolerate rate control meds due to low blood pressure)
Thrombocytopenia
- Low probability of HIT, 4Ts score is 2 or maximum 3
- Could be from patient's cirrhosis
- Continue to monitor CBC
Asthma without Acute Exacerbation
- No cough, wheezing or other evident symptoms.
- Continue usual inhaled medications. Albuterol PRN.
Iron Deficiency Anemia
- Stable. Hgb is at / near known baseline.
- Continue daily iron supplementation.
Peripheral Neuropathy
- Stable. Continue gabapentin.
Labile Hypertension with orthostatic hypotension
DVT Prophylaxis: Lovenox
Code Status: DNR
More than 30 minutes spent in discharge including
Final examination of the patient
Summarizing hospital stay
Instructions for continuing care to all relevant caregivers
Preparation of discharge records, prescriptions, and referral forms
Total time spent (in minutes): 36
Anticipated Discharge: Today
Subjective/Interval History
-
Date of Service: December 28, 2024
Patient was seen and examined. He denied any symptoms or complaints.
Objective Data
-
Labs:
Laboratory Results
12/28/24
05:24
WBC 6.7
Hgb 10.5 L
Hct 32.9 L
Plt Count 112 L
Sodium 132 L
Potassium 3.7
Chloride 95 L
Carbon Dioxide 29
BUN 22 H
Creatinine 0.8
Glucose 130 H
Calcium 8.3 L
Vital Signs:
Vital Signs
Temp Pulse Resp BP Pulse Ox
98.1 F 67 16 104/61 96
12/28/24 07:15 12/28/24 08:52 12/28/24 08:52 12/28/24 08:27 12/28/24 08:52
I&O
12/27/24 12/28/24 12/29/24
06:59 06:59 06:59
Intake Total 540 / 540 960 / 960
Output Total 750 / 750 875 / 875
Balance -210 / -210 85 / 85
--- NOTE | 2024-12-28 10:31 | CM ---
CM following re: discharge planning.
reviewed pt's chart, met with pt.
According to pt is medically stable to be discharged today. Pt is aware, expressed his agreement and great motivation to go to [facility]. IMM reviewed, placed on chart, pt has a copy. CM left a message to pt's spouse regarding possible
discharge.
CM spoke to [facility] director diabetes and she confirmed they do have a bed available and pt is accepted for admission today.
to arrange ambulance transport, BLS. [facility] completed and left jordan .
[facility] nursing report: [phone]
Discharge instructions fax: [phone]
D/C plan: [facility]
[2024-12-28 10:35] VITALS: BP 86/58; PULSE 99
--- NOTE | 2024-12-28 10:44 | CON.CAR ---
Addendum entered and electronically signed by Brian Funez MD 12/28/24 14:44:
I saw and examined the patient.
The COLLECTIONS PROFESSIONAL's note was reviewed and I agree with the note.
Comment: 79 y/o male (patient of Dr. Hoffmann) with PAF (not on OAC due to fall/bleeding risk, unable to tolerate rate control meds due to low BP), labile hypertension with orthostatic hypotension, anemia, alcoholic cirrhosis, ambulatory dysfunction
with history of falls, using wheelchair assistance. He came in with right hip pain s/p fall.
Possible AF - AF is not seen it is SR w/ PACS.
Original Note:
Consultation
Consultation Request
Date/Time Consultation Requested: 12/28/24 1020
Date/Time Consultation Performed: 12/28/24 1045
Requesting Provider: Dr. Mario
Performing Provider: Jennifer ALVAREZ for Dr. Funez
Reason for Consultation: concern for AFIB
Medical History
-
Chief Complaint: fall with hip pain
History of Present Illness:
79 y/o male (patient of Dr. Hoffmann) with PAF (not on OAC due to fall/bleeding risk, unable to tolerate rate control meds due to low BP), labile hypertension with orthostatic hypotension, anemia, alcoholic cirrhosis, ambulatory dysfunction with
history of falls, using wheelchair assistance. He came in with right hip pain s/p fall. He reports he slipped on something wet. He sustained a right femur fracture. Per ortho NWB for 6 weeks to RLE, but no surgery planned. We are consulted since
there is concern for AFIB on monitor. Telemetry reviewed and shows SR/ST with PAC's. I do not see AFIB, though he does have a history of it as noted. He has had chronic SHAVER for about 1 year and is seeing pulm soon.
Past Medical History
Past Medical History: Arrhythmias, HTN and Other (as above)
Social History
Personal:
Living: Assisted Living
Allergies / Home Medications
Allergy/AdvReac Type Severity Reaction Status Date / Time
lisinopril Allergy cough Verified 12/24/24 20:02
�Medication �Instructions �Recorded �Confirmed �Type
acetaminophen 500 mg capsule 500 mg PO Q6H Pain 07/23/23 12/25/24 History
calcium carbonate 500 mg PO BID PRN indigestion 07/23/23 12/25/24 History
duloxetine 30 mg capsule,delayed 30 mg PO BID Mental Health/Anxiety 07/23/23 12/25/24 History
release
famotidine 40 mg tablet 40 mg PO DAILY Gastrointestinal 07/23/23 12/25/24 History
Issue
ferrous sulfate 325 mg (65 mg 325 mg PO DAILY Supplement 07/23/23 12/25/24 History
iron) tablet
furosemide 40 mg tablet 40 mg PO DAILY Fluid 07/23/23 12/25/24 History
Retention/Swelling
lactulose 10 gram/15 mL oral 15 ml PO DAILY Gastrointestinal 07/23/23 12/25/24 History
solution Issue
melatonin 3 mg capsule 3 mg PO HS PRN sleep 07/23/23 12/25/24 History
umeclidinium 62.5 mcg/actuation 1 inh inhalation DAILY 07/23/23 12/25/24 History
blister powder for inhalation Lung/Breathing Issues
(Incruse Ellipta)
gabapentin 300 mg capsule 300 mg PO BID@0800,1400 12/25/24 12/25/24 History
NEUROPATHIC PAIN
gabapentin 600 mg tablet 600 mg PO HS NEUROPATHIC PAIN 12/25/24 12/25/24 History
potassium chloride 10 mEq 10 meq PO DAILY Supplement 12/25/24 12/25/24 History
tablet,extended release (Klor-Con)
tramadol 50 mg tablet 50 mg PO Q8H PRN Pain 12/25/24 12/25/24 History
Review of Systems
-
History Source: Patient
All other systems: Negative unless noted
Respiratory: Trouble Breathing (chronic SHAVER for past year- seeing pulm soon)
Musculoskeletal: Other (fall with hip pain)
Physical Exam
Vital Signs
Temp Pulse Resp BP Pulse Ox
98.1 F 67 16 104/61 96
12/28/24 07:15 12/28/24 08:52 12/28/24 08:52 12/28/24 08:27 12/28/24 08:52
Lab Results
12/28/24 05:24
12/28/24 05:24
Physical Exam
General: Well Developed, Well Nourished and No Apparent Distress
HEENT: Normocephalic and Anicteric
Respiratory: Clear and Non Labored Respirations
Cardiac: Regular Rhythm
Musculoskeletal: No Edema
Skin: Warm and Dry
Neuro: AO x 3
Psych: Calm
Impression / Plan
-
Fall with femur fracture:
-management per primary who discussed case with ortho and no plan for surgery
-PT working with patient
PAF:
-patient is in SR/ST with PAC's. No AFIB seen. However, he has known history of PAF, but not on AC due to fall/bleed risk. Came in with fall with injury as noted.
-his [id number] score is 3 for age, and hx HTN (per OP chart). However, he is not on AC for reasons as noted, per his primary ferris wheel attendant.
Hx alcoholic cirrhosis:
-on lactulose
Hx orthostatic hypotension:
-used to be on midodrine per OP chart, but reports this dx has not been a problem for him anymore
HTN hx:
-not an active issue
Data Reviewed
-
EKG: Tracing Personally Visualized and interpreted (ST with PAC's)
Radiology: Report Reviewed by me (hip XR: Bilateral hip replacements, grossly unchanged in position. Fracture is identified just below the greater trochanter, new compared to prior study dated 05/31/2019, with minimal displacement of the major
fracture fragment)
Medical Tests (Nuc Med, Echo etc): Report Reviewed by me (echo 12/05/24: EF 55-60%. Mild aortic regurgitation. PAP 31 mmHg. Dilated aortic root. 4.1 cm. Ectatic ascending aorta 4.2 cm. )
Labs: Labs Reviewed by me
[2024-12-28 11:30] VITALS: BP 116/62
--- NOTE | 2024-12-28 14:00 | W.DCSUMMARY ---
Discharge Summary
Discharge Data
Date of Admission: 12/25/24
Date of Discharge: 12/28/24
Total time spent discharging patient (in min): 36
-
Pending Results: No
Hospital Course
79 y/o male with past medical history significant for hospital associated delirium, paroxysmal atrial fibrillation (not on Eliquis due to falls/bleeding risk), alcoholic cirrhosis, hypertension, orthostatic hypotension (no longer on Midodrine) and
chronic ambulatory dysfunction who presented to the [facility] ER emergency room complaining of right hip pain status post fall. He did not sustain head trauma and he denied any loss of consciousness. Patient was found to have a right periprosthetic femur
fracture. Orthopedics recommended conservative management and non-weightbearing to the right lower extremity for 6 weeks. Patient's pain improved and he was stable for discharge.
Discharge Plan
-
Patient Disposition: Jail/SNF
Discharge Diagnosis/Procedures: Right Periprosthetic Femur Fracture
Ambulatory dysfunction with history of falls
Alcoholic Cirrhosis
Chronic Metabolic Encephalopathy
Chronic Exertional Dyspnea
Irregular Heart Rhythm on Exam on 12/26/24 from PACs
Paroxysmal Atrial Fibrillation (not on oral anticoagulation due to fall/bleeding risk, unable to tolerate rate control meds due to low blood pressure)
Thrombocytopenia
Asthma without Acute Exacerbation
Iron Deficiency Anemia
Peripheral Neuropathy
Labile Hypertension with orthostatic hypotension
Chest X-Ray Results (as per radiologist's report):
'IMPRESSION:
1. Moderate left pleural effusion, likely with some loculation, without significant change compared to prior chest x-ray. Left lower lobe airspace disease may also be present.
2. Hazy opacity within the right midlung zone is new compared to prior chest x-ray, and may represent pneumonia or sub-segmental atelectasis.'
Echocardiogram Results (as per fleet mechanic's report):
'CONCLUSIONS
Normal biventricular size and systolic function without regional wall motion
abnormality.
Left ventricular ejection fraction is 55-60% by visual assessment.
Mild aortic regurgitation.
Estimated pulmonary artery pressure of 31 mmHg, assuming a right atrial
pressure of 3 mmHg.
Dilated aortic root. 4.1 cm. Ectatic ascending aorta 4.2 cm.
Compared to prior from June 22, 2022, ascending aorta is 4.2 cm, previously
3.8 cm.'
Condition: Good
Diet: As tolerated and Restrict fluids to 48 oz
Activity: Other activity
Additional Activity: NWB to the RLE for 6 weeks.
Activity Restrictions/Additional Instructions:
Patient needs repeat chest x-ray within 7 days.
Activity: NWB to the RLE for 6 weeks.
Patient said he is supposed to follow-up with outpatient pulmonary [facility] due to his months of chronic exertional shortness of breath
Referrals:
UNKNOWN - PT DOES,NOT KNOW [Family Provider]
Additional Discharge Medication Instructions: Patient has not needed any Oxycodone or Tramadol in the past ~24 hours prior to discharge on 12/28/24 therefore no narcotic pain medications are being prescribed.
Prescriptions:
New
polyethylene glycol 3350 17 gram Powder In Packet
17 g PO DAILY Qty: 30 1RF
sennosides-docusate sodium 8.6-50 mg Tablet
1 tab PO BID Qty: 60 1RF
Continued
furosemide 40 mg Tablet
40 mg PO DAILY
famotidine 40 mg Tablet
40 mg PO DAILY
ferrous sulfate 325 mg (65 mg iron) Tablet
325 mg PO DAILY
calcium carbonate 500 mg calcium (1,250 mg) Tablet,Chewable
500 mg PO BID PRN (Reason: indigestion)
acetaminophen 500 mg Capsule
500 mg PO Q6H
duloxetine 30 mg Capsule,Delayed Release(Dr/Ec)
30 mg PO BID
lactulose 10 gram/15 mL Solution
15 ml PO DAILY
Incruse Ellipta 62.5 mcg/actuation Blister With Device
1 inh INHALATION DAILY
melatonin 3 mg Capsule
3 mg PO HS PRN (Reason: sleep)
gabapentin 600 mg Tablet
600 mg PO HS
potassium chloride [Klor-Con 10] 10 mEq Tablet Extended Release
10 meq PO DAILY
gabapentin 300 mg Capsule
300 mg PO BID@0800,1400
Discontinued
tramadol 50 mg Tablet
50 mg PO Q8H PRN (Reason: Pain)
Discharge Orders:
Discharge Patient (As Directed); Ordered 12/28/24
Ordered By: Rudy Mario
Discharge Date and Time
Discharge Date/Time: 12/28/24 14:25
Print Language: MALAYSIAN
== END 2024-12-28 14:25 | DRG 559 ==
LOC: 2 SOUTH 07:45
PROVIDERS: Registered Nurse; ADMITTING PHYSICIAN Hospitalist; ATTENDING PHYSICIAN Hospitalist; CONSULT PHYSICIAN Internal Medicine Cardiovascular Disease; EMERGENCY PHYSICIAN Emergency Medicine
DX: M97.01XA Periprosthetic fracture around internal prosthetic right hip joint, initial encounter (principal); G93.41 Metabolic encephalopathy; S72.111A Displaced fracture of greater trochanter of right femur, initial encounter for closed fracture; J45.901 Unspecified asthma with (acute) exacerbation; J90 Pleural effusion, not elsewhere classified; N25.81 Secondary hyperparathyroidism of renal origin; C83.0 Small cell B-cell lymphoma; I48.0 Paroxysmal atrial fibrillation; K70.30 Alcoholic cirrhosis of liver without ascites; I95.1 Orthostatic hypotension; W01.0XXA Fall on same level from slipping, tripping and stumbling without subsequent striking against object, initial encounter; D69.6 Thrombocytopenia, unspecified; D50.9 Iron deficiency anemia, unspecified; G62.9 Polyneuropathy, unspecified; I77.810 Thoracic aortic ectasia; I12.9 Hypertensive chronic kidney disease with stage 1 through stage 4 chronic kidney disease, or unspecified chronic kidney disease; N18.30 Chronic kidney disease, stage 3 unspecified; F32.A Depression, unspecified; F41.9 Anxiety disorder, unspecified; D47.2 Monoclonal gammopathy; Z88.8 Allergy status to other drugs, medicaments and biological substances; Z66 Do not resuscitate; K21.9 Gastro-esophageal reflux disease without esophagitis; K76.0 Fatty (change of) liver, not elsewhere classified; R09.02 Hypoxemia; Z79.899 Other long term (current) drug therapy; Z82.3 Family history of stroke; Z96.642 Presence of left artificial hip joint
CPT/HCPCS: 71045; 73502; 80048; 80053; 82140; 85025; 85027; 85610; 85730; 87070; 93005; 93306; 94640; 96374; 96376; 97163; 97167; 97530; 97535; 99285

== ENCOUNTER → 2025-01-01 09:16 | Outpatient (REF) | payer OTHER, MEDICARE, SELFPAY ==
[2025-01-01 12:16] LABS: Hematocrit 28.5 % (39.0-52.0); Hemoglobin 9.1 g/dL (13.0-18.0); Mean Corp Hgb Conc. 31.9 g/dL (33.0-37.0); Mean Corpuscular Volume 88.0 fL (80.0-94.0); Nucleated Red Blood Cells % 0 % (-); Platelet Count 192 10^3/uL (130-400); Red Cell Dist. Width 15.4 % (11.5-14.5)
[2025-01-01 12:41] LABS: Blood Urea Nitrogen 25 mg/dl (9-20); Calcium 8.5 mg/dl (8.4-10.2); Carbon Dioxide 30 mmol/L (22-30); Chloride 103 mmol/L (98-107); Glucose 119 mg/dl (70-99); Potassium 4.0 mmol/L (3.5-5.1); Sodium 136 mmol/L (135-145); eGFR > 60.00
== END ==
LOC: OLABP 09:16
PROVIDERS: ATTENDING PHYSICIAN Family Medicine
DX: S72.91XA Unspecified fracture of right femur, initial encounter for closed fracture (principal); R26.89 Other abnormalities of gait and mobility; K70.30 Alcoholic cirrhosis of liver without ascites; G93.41 Metabolic encephalopathy; R06.02 Shortness of breath; I48.0 Paroxysmal atrial fibrillation; D69.6 Thrombocytopenia, unspecified; J45.901 Unspecified asthma with (acute) exacerbation; D64.9 Anemia, unspecified; G90.01 Carotid sinus syncope; R03.0 Elevated blood-pressure reading, without diagnosis of hypertension
CPT/HCPCS: 36415; 80048; 85025

== ENCOUNTER → 2025-01-22 09:53 | Outpatient (REF) | payer MEDICARE, OTHER, SELFPAY ==
[2025-01-22 10:07] LABS: Hematocrit 33.3 % (39.0-52.0); Hemoglobin 10.2 g/dL (13.0-18.0); Mean Corp Hgb Conc. 30.6 g/dL (33.0-37.0); Mean Corpuscular Volume 89.3 fL (80.0-94.0); Nucleated Red Blood Cells % 0 % (-); Platelet Count 199 10^3/uL (130-400); Red Cell Dist. Width 14.6 % (11.5-14.5)
[2025-01-22 10:50] LABS: ALT (SGPT) 13 U/L (0-50); AST (SGOT) 20 U/L (17-59); Albumin 3.5 g/dl (3.5-5.0); Alkaline Phosphatase 224 U/L (38-126); Blood Urea Nitrogen 12 mg/dl (9-20); Calcium 8.7 mg/dl (8.4-10.2); Carbon Dioxide 31 mmol/L (22-30); Chloride 104 mmol/L (98-107); Glucose 134 mg/dl (70-99); LDH 117 U/L (120-246); Potassium 4.2 mmol/L (3.5-5.1); Sodium 141 mmol/L (135-145); Total Protein 7.6 g/dl (6.3-8.2); eGFR > 60.00
[2025-01-23 09:58] LABS: Iron 82 ug/dl (49-181)
[2025-01-23 10:07] LABS: Total Iron Binding Capacity 338 ug/dl (261-462)
[2025-01-23 11:43] LABS: Ferritin 74.3 ng/ml (17.9-464.0)
[2025-01-25 02:27] LABS: Albumin 2.93 g/dL (3.75-5.01); Free Kappa Light Chains,Quant 87.02 mg/L (3.30-19.40); Free Lambda Light Chains,Quant 66.64 mg/L (5.71-26.30); Immunofixation Electrophoresis IFE Done; Kappa/Lambda Fr Light Ratio 1.31 (0.26-1.65); Total Protein-Electrophoresis 7.1 g/dL (6.3-8.2)
== END ==
LOC: OIDL 09:53
PROVIDERS: ATTENDING PHYSICIAN Internal Medicine Hematology & Oncology
DX: D47.2 Monoclonal gammopathy (principal); D50.9 Iron deficiency anemia, unspecified; C83.07 Small cell B-cell lymphoma, spleen; T88.7XXA Unspecified adverse effect of drug or medicament, initial encounter; K22.4 Dyskinesia of esophagus
CPT/HCPCS: 80053; 82232; 82728; 82784; 83521; 83540; 83550; 83615; 84155; 84165; 85025; 86334

== ENCOUNTER → 2025-02-14 11:37 | Outpatient (REF) | payer MEDICARE, OTHER, SELFPAY | LOC: RAD 11:37 | PROVIDERS: ATTENDING PHYSICIAN Internal Medicine Hematology & Oncology; FAMILY PHYSICIAN Family Medicine | DX: K22.4 Dyskinesia of esophagus (principal); T88.7XXA Unspecified adverse effect of drug or medicament, initial encounter; C83.07 Small cell B-cell lymphoma, spleen; D47.2 Monoclonal gammopathy; D50.9 Iron deficiency anemia, unspecified | CPT/HCPCS: 71260; 74160; Q9967 ==

== ENCOUNTER → 2025-03-14 10:19 | Outpatient (REF) | payer MEDICARE, OTHER, SELFPAY ==
[2025-03-14 13:09] LABS: Hematocrit 34.1 % (39.0-52.0); Hemoglobin 10.8 g/dL (13.0-18.0); Mean Corp Hgb Conc. 31.7 g/dL (33.0-37.0); Mean Corpuscular Volume 77.9 fL (80.0-94.0); Nucleated Red Blood Cells % 0 % (-); Platelet Count 181 10^3/uL (130-400); Red Cell Dist. Width 14.2 % (11.5-14.5)
== END ==
LOC: OLABLV 10:19
PROVIDERS: ATTENDING PHYSICIAN Internal Medicine Hematology & Oncology; FAMILY PHYSICIAN Family Medicine
DX: D47.2 Monoclonal gammopathy (principal); D50.9 Iron deficiency anemia, unspecified; C83.07 Small cell B-cell lymphoma, spleen
CPT/HCPCS: 36415; 85025

== ENCOUNTER → 2025-04-11 08:50 | Outpatient (REF) | payer MEDICARE, OTHER, SELFPAY | LOC: RST 08:50 | PROVIDERS: ATTENDING PHYSICIAN Internal Medicine; FAMILY PHYSICIAN Family Medicine | DX: R13.10 Dysphagia, unspecified (principal); T17.900A Unspecified foreign body in respiratory tract, part unspecified causing asphyxiation, initial encounter | CPT/HCPCS: 74230; 92611 ==